=== PATIENT | female | born 1965 | race Caucasian/White ===

== ENCOUNTER 2017-04-21 14:55 | Observation (INO) | payer MEDICARE ==
[~2017-04-21] VITALS: Ht 154.9 cm; Wt 73.6 kg
--- NOTE | ~2017-04-21 | HEMODYNAMI ---
PATIENT:JULIO CESAR CASANOVA MEDICAL RECORD: [id number] : 61 [facility] [id number] ADMISSION DATE: 04/21/17 Generatedon:04/22/201713:02 Patient name: JULIO CESAR CASANOVA Patient #: [id number] SSN: : Date of study: 04/22/2017 Page: Of Hemodynamic Procedure Report Patient Data Patient Demographics Procedure consent was obtained First Name: JULIO CESAR Gender: Female Last Name: EDILBERTO : 1965 Middle Initial: AMADOR Age: 52 year(s) Patient #: [id number] Race: Additional ID: [id number] Contact details Address: [address] [place] [address] State: [place] City: [facility] Zip code: [address] Admission Admission Data Admission Date: 04/21/2017 Admission Time: 17:55 Room #: D.2122 Lab Results Lab Result Date: 04/22/2017 Lab Result Time: 0:00 Biochemistry Name Units Result Min Max BUN mg/dl 15 --(--*-)-- 7 18 Creatinine mg/dl 1.2 --(---*)-- 0.6 1.3 CBC Name Units Result Min Max Hemoglobin g/dl 13.3 -*(----)-- 13.5 17.5 Procedure Procedure Types Cath Procedure Diagnostic Procedure [facility] w/Coronaries PCI Procedure Coronary Stent Coronary Stent Initial Miscellaneous Procedures Moderate Sedation up to 30 minutes Procedure Description Procedure Date Procedure Date: 04/22/2017 Procedure Start Time: 12:42 Procedure End Time: 12:59 Procedure Staff Name Function Ashwin Bean MD Performing Physician Arianna Palomino RT Monitor Erika Perdue RT Scrub Mechelle Nielsen RN Nurse Procedure Data Cath Procedure Fluoroscopy Diagnostic fluoroscopy Total fluoroscopy Time: 3.3 time: 3.3 min min Diagnostic fluoroscopy Total fluoroscopy dose: 408 dose: 408 mGy mGy Contrast Material Contrast Material Type Amount (ml) Isovue 300 92 Entry Location Entry Primary Successful Side Size Upsize Upsize Entry Closure Succes sful Closure Location (Fr) 1 (Fr) 2 (Fr) Remarks Device Remarks Femoral Right 5 Fr 6 Fr Exoseal artery Short Estimated blood loss: 5 ml Diagnostic catheters Device Type Used For End Catheter Placement Cordis 5Fr JL 4.0 Left Coronary Catheter (MP) Angiography Cordis 5Fr 3DRC Catheter Right Coronary (MP) Angiography Cordis 5Fr Pigtail LV Angiography Catheter (MP) Procedure Complications No complications Procedure Medications Medication Administration Route Dosage Oxygen NC 2 l/min Lidocaine 2% added to field 20 Heparin Flush Bag added to field 2 bags (1000units/500ml NS) 0.9% NaCl I.V. 100 ml/hr Versed I.V. 1 mg Fentanyl I.V. 50 mcg Heparin Bolus I.V. 4000 units Versed I.V. 1 mg Fentanyl I.V. 50 mcg Plavix P.O. 75 mg Hemodynamics Rest HGB: 13.3 (g/dl) Heart Rate: 114 (bpm) Pressure Samples Time Site Value (mmHg) Purpose Heart Use Rate(bpm) 12:48 LV 150/3,40 Snapshot 119 Gradients Valve Time Site Site Mean SEP/DFP Peak To Heart Use 1 2 (mmHg) (sec/min) Peak Rate (mmHg) (bpm) Aortic 12:49 LV AO 117 Snapshots Pre Cath Intra NCS Post Cath Vital Signs Time Heart Resp SPO2 etCO2 NIBP (mmHg) Rhythm Pain Status Sedation Rate (ipm) (%) (mmHg) Level (bpm) 12:33:32 101 13 98 0 135/86(104) NSR 2 (11) , 10(A) Uncomfortable 12:38:14 111 24 99 31.9 133/82(108) NSR 2 (11) , 10(A) Uncomfortable 12:42:59 107 15 99 36.4 137/78(100) NSR 2 (11) , 10(A) Uncomfortable 12:47:43 114 16 99 20 140/77(97) NSR 0 (11) , No 9(A) pain 12:52:28 108 15 98 38.6 134/75(94) NSR 0 (11) , No 9(A) pain 12:57:11 108 24 98 26.7 134/74(105) NSR 0 (11) , No 10(A) pain 13:00:25 107 18 98 21.5 140/73(91) NSR 0 (11) , No 10(A) pain Medications Time Medication Route Dose Verified Delivered Reason Notes Effectiveness by by 12:34:17 Oxygen NC 2 Ashwin Buffie used for l/min St. Fco Nielsen RN procedure 12:34:26 Lidocaine 2% added 20ml Ashwin Ashwin for local to vial [facility] anesthetic field MD KHAN 12:34:32 Heparin Flush added 2 Ashwin Ashwin used for Bag to bags [facility] procedure (1000units/500ml field MD KHAN NS) 12:34:40 0.9% NaCl I.V. 100 Ashwin Banguraie Per physician ml/hr [facility]. Fco Nielsen RN, MD 12:42:15 Versed I.V. 1 mg Ashwin Banguraie for sedation St. Fco Nielsen RN, MD 12:42:21 Fentanyl I.V. 50 Ashwin Buffie for sedation mcg [facility]. Fco Nielsen RN, MD 12:48:45 Heparin Bolus I.V. 4000 Ashwincici Banguraie for verifi ed units St. Fco Nielsen RN anticoagulation with dr MD gaines 12:51:16 Versed I.V. 1 mg Ashwin Banguraie for sedation St. Fco Nielsen RN, MD 12:51:20 Fentanyl I.V. 50 Ashwin Svetaie for sedation mcg St. Fco Nielsen RN, MD 12:59:26 Plavix P.O. 75 mg Ashwin Buffie for St. Fco Nielsen RN antiplatelet therapy Procedure Log Time Note 12:20:19 Diagnostic Cath Status : Elective 12:20:42 Arianna Palomino RT(R) sent for patient. Start room use. 12:20:43 Time tracking: Regular hours 12:20:49 Plan of Care:Hemodynamics will remain stable., Cardiac rhythm will remain stable., Comfort level will be maintained., Respiratory function will remain adequate., Patient/ family verbilizes understanding of procedure., Procedure tolerated without complication., Recovers from procedure without complications.. 12:28:09 Patient received from Med II to CCL 1 Alert and oriented. Tansferred to table in Supine position. 12:28:10 Warm blankets applied, and marian hugger turned on for patient comfort. 12:28:11 Correct patient and procedure confirmed by team. 12:28:13 Signed procedure consent form obtained from patient. 12:28:13 ECG and BP/O2 sat monitors applied to patient. 12:32:36 Vital chart was started 12:34:17 Oxygen 2 l/min NC was administered by Mechelle Nielsen RN; used for procedure; 12:34:26 Lidocaine 2% 20ml vial added to field was administered by Ashwin Bean MD; for local anesthetic; 12:34:32 Heparin Flush Bag (1000units/500ml NS) 2 bags added to field was administered by Ashwin Bean MD; used for procedure; 12:34:40 0.9% NaCl 100 ml/hr I.V. was administered by Mechelle Nielsen RN; Per physician; 12:35:20 Baseline sample Acquired. 12:36:01 Rhythm: sinus rhythm 12:36:04 Full Disclosure recording started 12:36:11 H&P Date Dictated: 04/22/2017 New H&P dictated by physician.. 12:36:32 Pre-procedure instructions explained to patient. 12:36:32 Pre-op teaching completed and patient verbalized understanding. 12:36:35 Family in waiting room. 12:36:41 Patient NPO since Midnight. 12:36:53 Is the patient allergic to Iodine/contrast media? No. 12:36:55 Was the patient premedicated? No 12:37:06 Is patient on blood thinner?Yes 12:37:10 ACC The patient was administered the following blood thiners within the last 24 hours: ACCPlavix 12:37:14 Patient diabetic? Yes. 12:37:16 If diabetic: On Metformin? Yes 12:37:20 If on Metformin: Last Dose? 04/21/2017 12:37:24 Previous problem with sedation/anesthesia? No ? 12:37:28 Snore? Yes 12:37:29 Sleep apnea? No 12:37:35 Deviated septum? No 12:37:36 Opens mouth fully? Yes 12:37:37 Sticks out tongue? Yes 12:37:42 Airway obstruction? No ? 12:37:46 Dentures? No ? 12:38:03 Pre procedure: right dorsailis pedis pulse 2+ Normal; easily identifiable; not easily obliterated 12:38:07 Pre procedure: left dorsailis pedis pulse 2+ Normal; easily identifiable; not easily obliterated 12:38:10 Patient pain scale 2/10 ?. 12:38:28 IV patent on arrival in left hand with 0.9% NaCl at [facility]. 12:39:23 Lab Result : BUN 15 mg/dl 12:39:23 Lab Result : Creatinine 1.2 mg/dl 12:39:23 Lab Result : Hemoglobin 13.3 g/dl 12:39:27 Lab results completed and on chart. 12:39:32 Right groin area was prepped with chlora-prep and draped in sterile fashion 12:39:33 Alarms reviewed by R. N. 12:39:34 Sharps counted by scrub and verified by R.N. 12:39:37 Physician arrived 12:39:37 --------ALL STOP TIME OUT------ 12:39:38 Final Timeout: patient, procedure, and site verified with staff and physician. All members of the team are in agreement. 12:39:40 Right groin site verified by team. 12:39:43 Physical assessment completed. ASA score P 2 - A patient with mild systemic disease as per Ashwin Bean MD. 12:39:47 Sedation plan: IV Moderate Sedation Medication:Versed, Fentanyl 12:40:32 Use device set Femoral Dx 12:40:33 Acist Syringe opened to sterile field. 12:40:34 Bag Decanter opened to sterile field. 12:40:34 Medline Cath Pack opened to sterile field. 12:40:35 Terumo 5Fr Presidio Sheath opened to sterile field. 12:40:35 St Mike 260cm J .035 wire opened to sterile field. 12:40:37 Acist Hand Control opened to sterile field. 12:40:38 Acist Manifold opened to sterile field. 12:40:38 Diagnostic Infinity 5Fr Multipack catheter opened to sterile field. 12:40:41 Tegaderm 4 x 4 opened to sterile field. 12:40:55 Procedure started. 12:40:57 PERCUTANEOUS ENTRY 19GA needle opened to sterile field. 12:42:12 Local anesthetic to right femoral artery with Lidocaine 2% by Ashwin Bean MD.INITIAL ACCESS ONLY 12:42:15 Versed 1 mg I.V. was administered by Mechelle Nielsen RN; for sedation; 12:42:21 Fentanyl 50 mcg I.V. was administered by Buffie Nielsen RN; for sedation; 12:42:23 A 5 Fr sheath was inserted into the Right Femoral artery 12:43:04 A Cordis 5Fr JL 4.0 Catheter (MP) was advanced over the wire and used for Left Coronary Angiography. 12:43:05 Zero performed for pressure channel P1 12:45:34 LCA angiography performed. 12:45:38 Injector settings: Ml/sec: 3, Volume: 6, 12:45:46 Catheter removed. 12:45:51 A Cordis 5Fr 3DRC Catheter (MP) was advanced over the wire and used for Right Coronary Angiography. 12:46:52 RCA angiography performed. 12:46:57 Injector settings: Ml/sec: 3, Volume: 6, 12:46:59 Catheter removed. 12:47:04 A Cordis 5Fr Pigtail Catheter (MP) was advanced over the wire and used for LV Angiography. 12:48:12 Terumo 6Fr [place] Sheath opened to sterile field. 12:48:13 Stance BasixCompak Inflation Kit opened to sterile field. 12:48:13 [employer] Launcher 6Fr JL 3.5 guide catheter opened to sterile field. 12:48:32 [employer] PT Graphix J 300cm 0.014 guide wire opened to sterile field. 12:48:45 Heparin Bolus 4000 units I.V. was administered by Mechelle Nielsen RN; for anticoagulation; verified with dr gaines 12:48:46 LV hemodynamics recorded. 12:48:47 LV gram done using MCFADDEN 12:48:50 Injector settings: Ml/sec: 5, Volume: 15, 12:49:20 EF : 25 % 12:51:16 Versed 1 mg I.V. was administered by Mechelle Nielsen RN; for sedation; 12:51:20 Fentanyl 50 mcg I.V. was administered by Mechelle Nielsen RN; for sedation; 12:54:59 Catheter removed. 12:55:08 Sheath upsized to a 6 Fr Short. 12:55:23 6 Fr jl 3.5 guide catheter was inserted over the wire 12:55:30 pt graphix wire advanced. 12:55:36 Inflation Number: 1 A Boyle OTW 3.5 x 15 stent was prepped and advanced across the Mid CX. The stent was deployed at 12 ANNA for 0:30 (min:sec). 12:55:41 Stent catheter was removed intact over wire. 12:55:42 Wire removed. 12:55:42 Guide catheter removed. 12:56:27 Cordis 6Fr Exoseal opened to sterile field. 12:56:41 Sheath removed intact; hemostasis achieved with Exoseal to the Right Femoral artery. 12:56:43 Procedure ended.(Physican Out) 12:57:51 Fluoroscopy time 03.30 minutes. 12:58:01 Fluoroscopy dose: 408 mGy 12:58:01 Flurop Dose total: 408 12:58:05 Contrast amount:Isovue 300 92ml. 12:58:07 Sharps counted by scrub and verified by R.N. 12:58:08 Insertion/operative site no bleeding no hematoma. 12:58:11 Post-op/insertion site Right Femoral artery dressed using a 4 x 4 and Tegaderm. 12:58:13 Post right femoral artery:stable 12:58:15 Post Procedure Pulses reassessed and unchanged 12:58:19 Post procedure rhythm: unchanged. 12:58:21 Estimated blood loss: 5 ml 12:58:23 Post procedure instruction explained to patient.Patient verbalizes understanding. 12:58:23 Patient needs reinforcement of post procedure teaching. 12:58:45 Procedure type changed to Cath procedure, Diagnostic procedure, LHC, LHC w/Coronaries, PCI procedure, Coronary Stent, Coronary Stent Initial, Miscellaneous Procedures, Moderate Sedation up to 30 minutes 12:58:47 Procedure and supply charges have been captured, reviewed, submitted and are correct. 12:58:52 Procedure Complication : No complications 12:58:55 Vital chart was stopped 12:58:55 See physician's report for complete and final results. 12:58:57 Report given to [facility]. 12:58:59 Patient transfered to [facility] with Stretcher. 12:59:01 Procedure ended. 12:59:01 Full Disclosure recording stopped 12:59:09 ACC-PCI Only Patient was given prescriptions, or instructed by Ashwin Bean MD to start/continue the following medications upon discharge: Plavix 12:59:11 End room use (Document Last) 12:59:26 Plavix 75 mg P.O. was administered by Mechelle Nielsen RN; for antiplatelet therapy; Intervention Summary Intervention Notes Time ActionType Lesion and Equipment Action# Pressure Duration Attributes Used 12:55:36 Place stent Mid CX Boyle OTW 1 12 00:30 3.5 x 15 stent Device Usage Item Name Manufacture Quantity Catalog Number Hospital Part Current Min imal Lot# / Charge Number Stock Stock Serial# Code Acist Acist 1 42474 932694 151999 115153 20 Syringe Medical Systems Inc Bag Decanter Microtek 1 2002S 621052 41916 255502 5 Medical Inc. Medline Cath Cardinal 1 [id number] 991571 47234 828665 5 Pack Health Terumo 5Fr Terumo 1 [id number] 281832 943095 585268 [address] [facility] [address] Mike 1 787827 876970 517560 374133 30 260cm J .035 wire Acist Hand Acist 1 30194 747855 006809 816084 5 Control Medical Systems Inc Acist Acist 1 88814 108343 828510 779239 5 Manifold Medical Systems Inc Diagnostic Cardinal 1 [id number] 086399 82681 009844 30 Infinity 5Fr Health Multipack catheter Tegaderm 4 x 3M 1 1626W 232803 540014 826056 5 4 Cordis 5Fr Cardinal 1 745125 5 JL 4.0 Health Catheter (MP) Cordis 5Fr Cardinal 1 463423 5 3DRC Health Catheter (MP) Cordis 5Fr Cardinal 1 715296 5 Pigtail Health Catheter (MP) Terumo 6Fr Terumo 1 [id number] 710506 732720 079730 40 [place] Sheath Merit Merit 1 GQ9699 055780 212113 768979 15 BasixCompak Medical Inflation Kit Medtronic Medtronic 1 [id number] 121180 82135 013413 1 Launcher 6Fr JL 3.5 guide catheter [place] Sci [place] 1 [id number] 269632 797201 317474 5 PT Graphix J Scientific 300cm 0.014 guide wire Manjeet OTW 3.5 Medtronic 1 [id number] 188758 9475882 002400 5 [id number] x 15 stent PERCUTANEOUS ClasesD Medical 1 [id number] 205409 625010 5 [id number] ENTRY 19GA needle Cordis 6Fr Cardinal 1 EX600 836936 130049 337514 10 [facility] Sgrouples Signature Audit [place] Stage Time Signature Unsigned Intra-Procedure 04/22/2017 Arianna Palomino 1:01:57 PM RT(R) Signatures Monitor : Arianna Palomino RT Signature : Date : Time : [facility] [address] [place] [address]
[~2017-04-21 14:55] MED LIST: ASPIRIN81 MG PO; B-12 DOTS500 MCG PO; BRILINTA90 MG PO; LISINOPRIL2.5 MG PO; LOPRESSOR25 MG PO; PRAVACHOL20 MG PO; RANEXA1000 MG PO
[2017-04-21 15:46] LABS: BASOPHILS 0.2 % (0-2); EOSINOPHILS 1.3 % (0-7); HEMATOCRIT 38.9 % (36.0-48.0); HEMOGLOBIN 13.3 g/dL (12-16); IMMATURE GRANULOCYTES 0.3 % (0-5); LYMPHOCYTES 50.3 % (15-50); MCH 31.4 pg (26.0-34.0); MCHC 34.2 g/dL (31.0-37.0); MCV 91.7 fL (80.0-100.0); MEAN PLATELET VOLUME 10.8 fL (7.4-10.4); MONOCYTES 8.4 % (2-11); NEUTROPHILS 39.5 % (40-80); PLATELET COUNT 239 10x3/uL (130-400); RBC 4.24 10x6/uL (4.00-5.40); RDW 12.7 % (11.5-14.5); WBC 9.4 10x3/uL (4.8-10.8)
[2017-04-21 15:57] LABS: ALBUMIN 4.1 g/dL (3.4-5.0); ALKALINE PHOSPHATASE 82 U/L (46-116); ALT (SGPT) 47 U/L (10-68); BILIRUBIN - TOTAL 0.27 mg/dL (0.2-1.3); CALC OSMOLALITY 290 mosm/kg (275-300); CHLORIDE - SERUM 104 mmol/L (98-107); CREATININE - SERUM 1.2 mg/dL (0.6-1.3); GLUCOSE 258 mg/dL (74-106); PROTEIN - SERUM 7.8 g/dL (6.4-8.2); SODIUM 141 mmol/L (136-145); UREA NITROGEN 15 mg/dL (7-18); eGFR NON AFRICAN AMERICAN 50 mL/min (90-120)
[2017-04-21 16:12] LABS: CREATINE KINASE 246 UL (21-215)
[2017-04-21 16:17] LABS: TROPONIN-I 1.246 ng/mL (0.000-0.060)
[2017-04-21] MEDS ORDERED: TRIGLIDE160 MG PO (19:53)
[2017-04-21] MEDS ORDERED: VICTOZA0.6 MG/0.1 SQ (19:53)
[2017-04-21] MEDS ORDERED: TRESIBA FL100 UNIT/1 (19:54)
[2017-04-21] MEDS ORDERED: GLUCOPHAGE1000 MG PO (19:54)
--- NOTE | 2017-04-21 20:13 | NUR ---
RECEIVED REPORT FROM DEVAN FROM ER, PT IS A&O, IV-L.HAND-SL, PLACED ON TELEMTRY, PT KNOWS SHE WILL BE NPO AFTER MID-NIGHT, WILL GET CONSENT SIGNED FOR CATH, BED IS LOW, SRX2, CALL LIGHT IN REACH, WILL CONTINUE PLAN OF CARE
[2017-04-21 22:38] LABS: CKMB 3.5 U/L (0.0-3.6); CREATINE KINASE 185 UL (21-215)
[2017-04-21 22:41] LABS: TROPONIN-I 1.146 ng/mL (0.000-0.060)
[2017-04-21 23:09] VITALS: BP 114/71; Ht 154.9 cm; Wt 73.6 kg
--- NOTE | 2017-04-21 23:22 | NUR ---
ADMISSION ASSESSMENT COMPLETED. SR WIT HDEPRESSED ST SEGMENT HR 79. IV TO L HAND SL. ALERT AND ORIENTED TO PERSON, PLACE AND TIME. STATES CP 2/10 WITH INSPIRATION AND COUGH. WILL CONTINUE TO MONITOR. SR UP X2, CALL LIGHT WITHIN REACH.
--- NOTE | 2017-04-22 03:05 | NUR ---
PT SLEEPING, NPO SINCE MIDNIGHT, BED IS LOW, SRX2, CALL LIGHT IN REACH, WILL CONTINUE PLAN OF CARE
[2017-04-22 05:41] LABS: CKMB 2.4 U/L (0.0-3.6); CREATINE KINASE 147 UL (21-215)
[2017-04-22 05:51] LABS: TROPONIN-I 0.967 ng/mL (0.000-0.060)
[2017-04-22 06:37] VITALS: BP 115/60
--- NOTE | 2017-04-22 07:05 | NUR ---
RECEIVED REPORT. ASSUMED CARE OF PATIENT. PATIENT LYING IN BED ON RIGHT LATERAL SIDE. FEMALE VISITOR AT BEDSIDE. PATIENT STATES SHE IS USED TO DULL ACHY PAIN IN CHEST BUT THIS SEEMS TO KIND OF RADIATE TO SHOULDER. TELEMETRY PATENT WITH NOTED ST DEPRESSION. CALL LIGHT WITHIN REACH. PATIENT BEING KEPT NPO FOR POSSIBLE HEART CATH. NO DISTRESS.
[2017-04-22 08:00] VITALS: BP 104/51
[2017-04-22 08:56] LABS: CALC OSMOLALITY 289 mosm/kg (275-300); CALCIUM 9.4 mg/dL (8.5-10.1); CARBON DIOXIDE 22.4 mmol/L (21.0-32.0); CHLORIDE - SERUM 109 mmol/L (98-107); GLUCOSE 149 mg/dL (74-106); POTASSIUM - SERUM 3.9 mmol/L (3.5-5.1); SODIUM 144 mmol/L (136-145); UREA NITROGEN 13 mg/dL (7-18); eGFR NON AFRICAN AMERICAN 61 mL/min (90-120)
[2017-04-22 09:00] LABS: BASOPHILS 0.3 % (0-2); EOSINOPHILS 2.1 % (0-7); HEMATOCRIT 35.7 % (36.0-48.0); HEMOGLOBIN 12.1 g/dL (12-16); IMMATURE GRANULOCYTES 0.3 % (0-5); LYMPHOCYTES 66.7 % (15-50); MCH 31.5 pg (26.0-34.0); MCHC 33.9 g/dL (31.0-37.0); MEAN PLATELET VOLUME 11.3 fL (7.4-10.4); MONOCYTES 6.5 % (2-11); NEUTROPHILS 24.1 % (40-80); PLATELET COUNT 238 10x3/uL (130-400); RBC 3.84 10x6/uL (4.00-5.40); RDW 12.9 % (11.5-14.5); WBC 7.7 10x3/uL (4.8-10.8)
--- NOTE | 2017-04-22 10:01 | HP ---
PATIENT: JULIO CESAR CASANOVA MEDICAL RECORD: [id number] ACCOUNT: [id number] LOCATION:[address] : 61 ADMISSION DATE: 04/21/17 HISTORY AND PHYSICAL EXAMINATION HISTORY OF PRESENT ILLNESS: A 52-year-old female with a known history of coronary artery disease, status post intervention by Dr. Whelan, has a history of chronic stable angina, on Ranexa for the same, admitted after acute social stressor with attempted suicide, found to have cardiac enzymes. She was admitted for further evaluation. PAST MEDICAL HISTORY: 1. History of hypertension. 2. Hyperlipidemia. 3. Diabetes mellitus. 4. Coronary artery disease as described above. ALLERGIES: None known. MEDICATIONS: Include fenofibrate 160 day, pravastatin 20 daily, Ranexa 1 gram b.i.d., aspirin 81 day, insulin per scale, Victoza 1.2 mg subcutaneous daily, metformin 1 gram b.i.d. ALLERGIES: No known drug allergies. SOCIAL HISTORY: , has been under more stress as of late, nonsmoker. No illicit drug use. REVIEW OF SYSTEMS: The patient reports easy bruising but reports no swollen glands. The patient reports no fever, no night sweats, no significant weight gain, no significant weight loss. No significant exercise tolerance. The patient reports no dry eyes, no irritation, no vision change. Patient reports no difficulty hearing and no ear pain. Patient reports no frequent nose bleeds or nose and sinus problems. Patient reports on arm pain on exertion. No shortness of breath while lying down. No history of heart murmur. Patient reports no cough, no wheezing or coughing up blood. Patient reports no abdominal pain, no vomiting. Normal appetite. No diarrhea and not vomiting blood. No nausea and no constipation. Patient reports no incontinence. No difficulty urinating. No hematuria. No increased frequency. Patient reports no muscle aches. No weakness, no arthralgias, no back pain. No swelling of the extremities. Patient reports no abnormal mole, no jaundice, no rashes. Reports no loss of consciousness. No weakness and no numbness. No seizures, dizziness, or headaches. The patient reports no depression, no sleep disturbance, feeling safe in a relationship and no alcohol abuse. Patient reports on fatigue. Reports no runny nose or sinus pressure. No itching, no hives, and no frequent sneezing. PHYSICAL EXAMINATION: GENERAL: Pleasant female in no acute distress. VITAL SIGNS: Blood pressure 104/51, pulse 70 and regular. HEENT: Normocephalic, atraumatic. NECK: No bruits are noted. HEART: Regular. LUNGS: Oro good air excursion. ABDOMEN: Soft, nontender. HISTORY AND PHYSICAL [id number] JULIO CESAR CASANOVA EXTREMITIES: Pulses are 2+ with no edema. NEUROLOGIC: Grossly intact. DIAGNOSTIC DATA: ECG shows diffuse ST-T changes. IMPRESSION: Non ST-elevation myocardial infarction. Obviously including the differential would be Takotsubo cardiomyopathy with recent stressors, although this is difficult to tell if she is having new ECG changes, previous history of intervention to LAD. PLAN: Diagnostic intervention based on above. TRANSINT:[id number] Voice Confirmation ID: [id number] DOCUMENT ID: [id number] MANOLO CAMACHO MD at 1001 CC: [id number] DICTATION DATE: 04/22/17826 PESTICIDE CONTROL INSPECTOR: 04/22/17 0937 ADM IN [place] [id number] [place] [id number]
--- NOTE | 2017-04-22 11:30 | NUR ---
FSBS 104. NO INSULIN COVERAGE ADMINISTERED. PATIENT NPO FOR MACHINE CEMENTER.
[2017-04-22 12:00] VITALS: BP 120/63
--- NOTE | 2017-04-22 12:04 | NUR ---
PREOP MEDS GIVEN PER BUFFY FROM [employer].
[2017-04-22 12:15] VITALS: BP 120/63
--- NOTE | 2017-04-22 12:20 | NUR ---
PATIENT LEFT UNIT VIA BED FOR TUBE COATER. NO DISTRESS UPON LEAVING UNIT.
--- NOTE | 2017-04-22 13:34 | NUR ---
PATIENT RESTING WITH EYES CLOSED. EASILY AROUSED. IV FLUIDS INFUSING ORDERED. PERIPHERAL PULSES PATENT. NO HEMATOMA FORMATION AT RIGHT GROIN. RIGHT GROIN DRESSING CLEAN, DRY AND INTACT. CALL LIGHT WITHIN REACH. FAMILY AT BEDSIDE.
[2017-04-22 16:00] VITALS: BP 100/58
[2017-04-22 16:11] VITALS: BP 108/62
--- NOTE | 2017-04-22 16:31 | NUR ---
FSBS 78. NO INSULIN COVERAGE REQUIRED.
[2017-04-22] MEDS ORDERED: COREG 3.1253.125 MG PO (17:48)
[2017-04-22] MEDS ORDERED: PLAVIX75 MG PO (17:49)
[2017-04-22] MEDS ORDERED: COZAAR50 MG PO (17:50)
--- NOTE | 2017-04-22 18:51 | NUR ---
1830 20 GAUGE IV REMOVED FROM LEFT HAND. NO BLEEDING FROM SITE. CATHETER TIP INTACT. 2X2 GAUZE APPLIED AND SECURED WITH TAPE. 1840 DISCHARGE INSTRUCTIONS PROVIDED TO PATIENT. 3 PRESCRIPTIONS AND STENT CARD GIVEN TO PATIENT. PATIENT VERBALIZED UNDERSTANDING OF ALL INSTRUCTIONS PROVIDED. 1850 PATIENT LEFT UNIT VIA WHEELCHAIR WITH ALL PERSONAL BELONGINGS. PATIENT DISCHARGED TO HOME WITH HER FRIEND. PATIENT IN NO DISTRESS UPON LEAVING UNIT AND THANKED THIS RENT AND MISCELLANEOUS REMITTANCE CLERK FOR CARES RENDERED.
--- NOTE | 2017-04-23 11:39 | OP ---
PATIENT NAME: JULIO CESAR CASANOVA MEDICAL RECORD: [id number] :61 LOCATION:D.M2 D.2 ADMISSION DATE:04/21/17 SURGEON: MANOLO CAMACHO MD DATE OF OPERATION: 04/22/2017 PROCEDURE: Left heart catheterization, selective coronary angiography, right femoral approach. CATHETERS: A 5-American sheath, 5/4 left and right Brianna, 5/4 pig. The procedure was well tolerated. Proceeded to PTCA stenting of circumflex. FINDINGS: Left ventriculography, 30-degree MCFADDEN view shows marked anterior, mid anterior wall, anterior apical and anterior apex. Overall function reduced 25-30%. CORONARY ANATOMY: LEFT MAIN: Left main is free of disease. LAD: In the area of previous stenting is widely patent without evidence of restenosis. CIRCUMFLEX: Has an new non-described lesion of 90%, this may be a fissured plaque. RIGHT CORONARY ARTERY: The right coronary artery was somewhat of a codominant system and this shows no significant stenosis. IMPRESSION: Non-ST elevation myocardial infarction secondary to disease of the circumflex in which momentarily a 5-American sheath was changed for a 6-American sheath. The JL4 guiding catheter provided a good guide catheter support followed by 300 cm Whisper wire which was placed across the totally occluded circumflex. This portion of left anterior descending, stent deployed was a 3.5 x 15 mm Wellington drug-eluting stent up to 14 atmospheres. Final angiography shows excellent resolution, 90+ percent stenosis, no significant residual. DOMINIQUE flow was 3 throughout the procedure. Integrilin was used in the case. Sheath closed with ExoSeal device. TRANSINT:[id number] Voice Confirmation ID: [id number] DOCUMENT ID: [id number] MANOLO CAMACHO MD at 1139 CC: [id number] DICTATION DATE: 04/22/17 1302 MARINE SUPERINTENDENT: 04/22/17 1413 DIS IN 04/22/17 [place] [id number] [place] [address]
--- NOTE | 2017-04-23 11:39 | DS ---
PATIENT:JULIO CESAR CASANOVA :61 MEDICAL RECORD: [id number] DISCHARGE SUMMARY ADMISSION DATE: 04/21/17 DISCHARGE DATE: 04/22/17 DATE OF ADMISSION: 04/21/2017. DATE OF DISCHARGE: 04/22/2017. PROBLEM LIST: 1. Non-ST elevation myocardial infarction. 2. Diabetes mellitus. 3. Hypertension. 4. Hyperlipidemia. BRIEF HISTORY AND HOSPITAL COURSE: He was admitted with a non-ST elevation myocardial infarction, was found to have a tight circumflex disease on intervention of vessel, additionally found to have cardiomyopathy, and was started on ARB and beta blockade, discharged home in good condition. DIET: AHA ADA diet. ACTIVITY: As tolerated. TRANSINT:[id number] Voice Confirmation ID: [id number] DOCUMENT ID: [id number] MANOLO CAMACHO MD at 1139 CC: [id number] DICTATION DATE: 04/22/17 1303 QUALITY CONTROL MICROBIOLOGIST: 04/22/17 1443 DIS IN 04/22/17 [place] [address] [place] [address]
== END 2017-04-22 18:50 | disposition home or self-care (01) ==
LOC: D.ER 14:55 → OBSVTIME 17:55 → D.M2 17:55
PROVIDERS: Emergency Medicine; ADMIT Internal Medicine Interventional Cardiology
DX: I21.4 Non-ST elevation (NSTEMI) myocardial infarction (principal); I25.10 Atherosclerotic heart disease of native coronary artery without angina pectoris; E11.9 Type 2 diabetes mellitus without complications; I10 Essential (primary) hypertension; E78.5 Hyperlipidemia, unspecified; I42.9 Cardiomyopathy, unspecified

== ENCOUNTER 2019-07-25 08:10 | Day surgery (SDC) | payer OTHER ==
[2019-07-23 15:41] LABS: HEMATOCRIT 41.8 % (36.0-48.0); HEMOGLOBIN 14.6 g/dL (12-16); MCH 31.1 pg (26.0-34.0); MCHC 34.9 g/dL (31.0-37.0); MCV 89.1 fL (80.0-100.0); MEAN PLATELET VOLUME 9.8 fL (7.4-10.4); RBC 4.69 10x6/uL (4.00-5.40); RDW 12.3 % (11.5-14.5); WBC 10.1 10x3/uL (4.8-10.8)
[2019-07-23 15:46] LABS: ANION GAP 13.6 mmol/L (8-16); CARBON DIOXIDE 28.4 mmol/L (21.0-32.0); CREATININE - SERUM 0.9 mg/dL (0.6-1.3)
[~2019-07-25] VITALS: Ht 154.9 cm; Wt 77.1 kg
[2019-07-25 08:28] VITALS: BP 146/75; Ht 154.9 cm; Wt 77.1 kg
--- NOTE | 2019-07-25 13:25 | NUR ---
KNEE IMMOBILIZER APPLIED TO RT KNEE IN RR
--- NOTE | 2019-07-25 14:16 | NUR ---
1402 PT C/O BURNING SENSATION ABOVE RIGHT KNEE. DESCRIBES IT LIKE A "HOT POKER STICKING ME"
--- NOTE | 2019-07-25 15:19 | NUR ---
1503 PT STATES THE BURNING IS GET LESS IN INTENSITY. PAIN LEVEL IS 5 OUT OF 10. IV DC'D. CATHETER TIP INTACT. NO BLEEDING AT SITE. BANDAID APPLIED.
--- NOTE | 2019-07-29 09:56 | OP ---
PATIENT NAME: JULIO CESAR CASANOVA MEDICAL RECORD: [id number] :61 LOCATION:D.OPS ADMISSION DATE: SURGEON: VENTURA LEE MD DATE OF OPERATION: 07/25/2019 PREOPERATIVE DIAGNOSES: Medial meniscus tear, tibial plateau fracture and anterior cruciate ligament tear. POSTOPERATIVE DIAGNOSES: 1. Anterior cruciate ligament tear of the right knee. 2. Nondisplaced tibial plateau fracture of the right knee. PROCEDURE: Right anterior cruciate ligament reconstruction with allograft. SURGEON: Ventura Lee MD DIRECTOR OF VITAL STATISTICS: ANDIE Dudley INTRAOPERATIVE COMPLICATIONS: None. SUMMARY OF PATHOLOGIC FINDINGS: While the patient was thought to perhaps have a medial meniscus tear that was not brought out at the time of operative intervention. The patient also had a known MRI documented nondisplaced proximal tibial plateau fracture. There were no chondral fissuring or cracks to suggest displaced tibial plateau fracture. The inside of the knee with the exception of the anterior cruciate was essentially pristine. I do think; however, the patient will need protected weightbearing to allow for the tibial plateau fracture to heal; however, it did not require internal fixation and the menisci did not require repair. The ACL was completely pulled off its femoral origin and required anterior cruciate ligament reconstruction, allograft was used. OPERATIVE SUMMARY IN DETAIL: After obtaining the appropriate preoperative orthopedic surgery consent as well as anesthetic consultation, evaluation and clearance, the patient was brought to the operating room and placed on the operating table in a supine position. After general laryngeal mask airway was administered, tourniquet was placed about the proximal aspect of the right lower extremity. Right lower extremity was prepped and draped in sterile fashion. At this point, the appropriate timeout was taken and agreed upon by all. Given the patient's unique identifiers, the leg was elevated and exsanguinated, tourniquet was inflated to 350 mmHg. Routine inferolateral portal and superior medial portal was established along with the inferomedial portal. Diagnostic arthroscopy of the entire knee showed basically a pristine knee with remnants of inflammatory tissue as well as some blood. There were no loose bodies. The medial and lateral menisci were intact. No chondral fissuring could be seen in keeping with a nondisplaced MRI documented tibial plateau fracture. Care was taken to evaluate all portions of the condylar surfaces and articular surface to make sure that the patient was not at risk for extravasation compartment syndrome. When it was felt that the patient was reasonably safe from compartment syndrome, diagnostic arthroscopy of the ACL did show the patient to have an ACL tear that had torn from its femoral origin and had completely adhered to the PCL giving her a pseudo false positive Alonzo's test. At this point, under direct arthroscopy the ACL was taken down to its stump. Formal notchplasty was performed. The tibial guide was then utilized to create an 11-mm tibial tunnel and then the appropriate guide was utilized with the low profile 11-mm reamer to create a depth of approximately 25-mm. Allograft was OPERATIVE REPORT [id number] EDILBERTOJULIO CESAR AMADOR then prepared on the back field using the TightRope connection system. It was thusly passed using a TightRope connection system seated into the femoral tunnel. The button was then seated along the lateral femoral compartment. The knee was ranged several times before the distal fixation was achieved with a transcortical tibial post. Having completed this, the knee was taken through range of motion. Alonzo's test was negative. Pivot shift was negative. At this point, after already having a block, no intra-articular medication was utilized. The incisions were closed in the usual fashion by ANDIE Dudely. Sterile dressings were applied. Tourniquet was deflated and an articulated knee brace set at a locked out of 0 was placed. The patient was then awakened and taken to recovery room in stable condition. All final needle and sponge counts were correct. TRANSINT:[id number] Voice Confirmation ID: [id number] DOCUMENT ID: [id number] JESUS KHAN, VENTURA NUNEZ at 0956 CC: [id number] DICTATION DATE: 07/26/19 1018 PROGRAM AIDE GROUP WORK: 07/26/19 1301 [facility] [place] 07/25/19 [place] [id number]
== END 2019-07-25 15:18 | disposition home or self-care (01) ==
LOC: D.OPS 08:10 → D.PAN 10:15 → D.OPS 15:18 → D.PAN 18:30
PROVIDERS: Anesthesiology; ATTEND Orthopaedic Surgery
DX: S83.241A Other tear of medial meniscus, current injury, right knee, initial encounter (principal); S82.121A Displaced fracture of lateral condyle of right tibia, initial encounter for closed fracture; X58.XXXA Exposure to other specified factors, initial encounter; M25.561 Pain in right knee; I25.10 Atherosclerotic heart disease of native coronary artery without angina pectoris; I42.9 Cardiomyopathy, unspecified; I10 Essential (primary) hypertension; E78.5 Hyperlipidemia, unspecified; Z01.810 Encounter for preprocedural cardiovascular examination

== ENCOUNTER → 2020-08-04 11:49 | Outpatient (CLI) | payer BC ==
[2019-07-25 08:28] VITALS: BMI 32.2
[~2020-08-04 11:49] MED LIST changes: +COREG 3.1253.125 MG PO; +COZAAR50 MG PO; +GLUCOPHAGE1000 MG PO; +HYDROCODON-ACE1 EA10 PO; +PLAVIX75 MG PO; +TRESIBA FL100 UNIT/1; +TRESIBA FL100 UNIT/1 SC; +TRIGLIDE160 MG PO; +VICTOZA0.6 MG/0.1 SQ
--- NOTE | 2020-08-05 09:45 | EC ---
PATIENT:JULIO CESAR CASANOVA DATE OF SERVICE: 08/04/20 SEX: F MEDICAL RECORD: [id number] DATE OF : 61 LOCATION:[facility] AGE OF PATIENT: 55 ADMISSION DATE: 08/04/20 REFERRING PHYSICIAN: INTERPRETING PHYSICIAN: MANOLO CAMACHO MD ECHOCARDIOGRAM REPORT ECHO CHARGES 4 ECHO COMPLETE Date: 08/04/20 CLINICAL DIAGNOSIS: CAD/CARDIOMYOPATHY/ RECENT CHEST PAIN, ASSESS EF AND VALVES ECHOCARDIOGRAPHIC MEASUREMENTS (adult normal given) AC root (d.<3.7cm) 2.9 cm LV Septum d (<1.2 cm> 1.2 cm Valve Excursion 1.8 cm LV Septum (systole) 1.6 cm Left Atria (s.<4.0cm> 3.7 cm LVPW d(<1.2cm) 1.3 cm RV (d.<2.3cm) 3.9 cm LVPW (sytole) 1.8 cm LV diastole(<5.6CM) 4.5 cm MV E-F(>70mm/sec) cm LV systole 2.5 cm LVOT Diameter 1.9 cm MV exc.(>10mm) 1.5 cm Est.ejection fraction (50-75%) % DOPPLER: LVIT cm/sec A 102.0cm/sec E 84.0 cm/sec LA cm/sec RVSP 18 mmHg LVOT 110 cm/sec AOP1/2T m/s Asc. Ao 149 cm/sec RVOT 80 cm/sec RA cm/sec PA 108 cm/sec AV Gradient Peak 8.88 mmHg AV Mean 4.81 mmHg AV Area 2.3 cm MV Gradient Peak 2.41 mmHg MV Mean 1.12 mmHg MV Area cm COMMENTS: Background Check Coordinator: 2 LIANA TOMLINSON Title Search Manager: 3 Dr. Bean TAPE# PACS Pericardial Effusion N DATE OF SERVICE: 08/04/2020 Adequate 2D, color flow imaging, spectral Doppler, and M-Mode. FINDINGS: Borderline LVH. LV internal dimension is normal. Wall motion is normal. EF is greater than or equal to 55%. Aortic valve is tricuspid. No evidence of stenosis by Doppler interrogation. Left atrium was normal. Mitral valve shows no prolapse. Trace MR. Right-sided chambers are grossly normal. Trace TR. ECHOCARDIOGRAM REPORT [id number] JULIO CESAR CASANOVA TRANSINT:[id number] Voice Confirmation ID: [id number] DOCUMENT ID: [id number] MANOLO CAMACHO MD at 0945 CC: [id number] DICTATION DATE: 08/04/20 [address] SUPERVISOR: 08/04/202241 DEP CLI 08/04/20 [place] [id number] [place] [id number]
== END | disposition home or self-care (01) ==
LOC: D.HCCECHO 11:49
PROVIDERS: ATTEND Internal Medicine Interventional Cardiology
DX: I25.10 Atherosclerotic heart disease of native coronary artery without angina pectoris (principal)

== ENCOUNTER → 2020-08-18 08:14 | Outpatient (CLI) | payer BC ==
[2019-07-25 08:28] VITALS: BMI 32.2
== END | disposition home or self-care (01) ==
LOC: D.HCCARDIO 08:14
PROVIDERS: ATTEND Internal Medicine Cardiovascular Disease
DX: I20.9 Angina pectoris, unspecified (principal)

== ENCOUNTER 2020-08-31 07:15 | Day surgery (SDC) | payer BC ==
[~2020-08-31] VITALS: Ht 154.9 cm; Wt 77.6 kg
--- NOTE | ~2020-08-31 | HEMODYNAMI ---
PATIENT:JULIO CESAR CASANOVA MEDICAL RECORD: [id number] : 61 LOCATION:[place] ADMISSION DATE: 08/31/20 Generatedon:110:11 Patient name: JULIO CESAR CASANOVA Patient #: [id number] SSN: : Date of study: 08/31/2020 Page: Of Hemodynamic Procedure Report Patient Data Patient Demographics Procedure consent was obtained First Name: JULIO CESAR Gender: Female Last Name: EDILBERTO : 1965 Middle Initial: AMADOR Age: 55 year(s) Patient #: [id number] Race: Additional ID: [id number] Contact details Address: [address] [place] [address] rd State: [facility] Zip code: [address] Past Medical History Performed procedures and imaging results Date Procedure Procedure Results Comments Stress testing Positive->Intermediate with SPECT MPI risk History of disease Date Diagnosis Comments CAD Allergies: No known allergies Admission Admission Data Admission Date: 08/31/2020 Admission Time: 7:15 Arrival Date: 08/31/2020 Arrival Time: 0:00 Height (in.): 61 BSA: 1.77 (m2) Height (cm.): 154.94 BMI: 32.49 (kg/m2) Weight (lbs.): 171.96 Weight (kg.): 78 Lab Results Lab Result Date: 08/31/2020 Lab Result Time: 0:00 Biochemistry Name Units Result Min Max BUN mg/dl 19 --(----)*- 7 18 CK-MB ng/ml 0.9 --(*---)-- 0 3.6 eGFR ml/min 67.26555 *-(----)-- 90 120 NONAFRICAN CBC Name Units Result Min Max Hematocrit % 43.4 --(*---)-- 42 54 Hemoglobin g/dl 15.1 --(-*--)-- 13.5 17.5 Procedure Procedure Types Cath Procedure Diagnostic Procedure [facility] w/Coronaries FFR/IVUS FFR Initial Sedation Charges Moderate Sedation 40-54 minutes PCI Procedure Coronary Stent Coronary Stent Initial Hemochron ACT Test Procedure Description Procedure Date Procedure Date: 08/31/2020 Procedure Start Time: 9:26 Procedure End Time: 10:05 Procedure Staff Name Function Wilmer Boyd RN Nurse Ashwin Medina MD Performing Physician Kathrin Reinoso RT Monitor RosinaDruidly RT Scrub Procedure Data Cath Procedure Fluoroscopy Diagnostic fluoroscopy Total fluoroscopy Time: 9.8 time: 9.8 min min Diagnostic fluoroscopy Total fluoroscopy dose: dose: 1300 mGy 1300 mGy Contrast Material Contrast Material Type Amount (ml) Isovue 300 122 Entry Location Entry Primary Successful Side Size Upsize Upsize Entry Closure Hilliard ccessful Closure Location (Fr) 1 (Fr) 2 (Fr) Remarks Device Remarks Radial Right 6 Fr Mechanical artery Short Compression Estimated blood loss: 10 ml Diagnostic catheters Device Type Used For End Catheter Placement DIAGNOSTIC [place] 110cm 5 Procedure Fr catheter ([id number]) DIAGNOSTIC AR1 MOD 5Fr Procedure catheter ([id number]) Procedure Complications No complications Procedure Medications Medication Administration Route Dosage Oxygen etCO2 Nasal cannula 2 l/min Heparin Flush Bag added to field 2 bags (1000units/500ml NS) 0.9% NaCl I.V. 100 ml/hr Lidocaine 2% added to field 20 Fentanyl I.V. 50 mcg Versed I.V. 1 mg Fentanyl I.V. 50 mcg Versed I.V. 1 mg Fentanyl I.V. 50 mcg Radial Cocktail added to field 1 syringe (Verapamil 2mg/Nitro 400mcg/Heparin 1500units) Radial Cocktail added to field 1 syringe (Verapamil 2mg/Nitro 400mcg/Heparin 1500units) Heparin Bolus I.V. 5000 units Integrilin (Bolus I.V. 6.8 ml 2mg/ml) Integrilin (Bolus wasted 3.2 ml 2mg/ml) Nitroglycerin IC/IA I.C. 150 mcg Plavix P.O. 600 mg Fentanyl I.V. 50 mcg Hemodynamics Rest BSA: 1.77 (m2) HGB: 15.1 (g/dl) O2 Consumption: Estimated: 170.5 (ml/min) O2 Con sumption indexed: Estimated:96.33 (ml/min/m) Heart Rate: 72 (bpm) Pressure Samples Time Site Value (mmHg) Purpose Heart Use Rate(bpm) 9:30 LV 161/1,10 Snapshot 109 9:30 LV 107/28,12 Pullback 96 9:30 AO 135/76(104) Pullback 96 Gradients Valve Time Site 1 Site 2 Mean SEP/DFP Peak To Heart Use (mmHg) (sec/min) Peak Rate (mmHg) (bpm) Aortic 9:30 LV AO 0 96 107/28,12 135/76(104) Calculations Valve P-P Mean Valve Index Valve Source Name Gradient Area Flow (cm2) Aortic 0 0 Snapshots Pre Cath Intra NCS Post Cath Vital Signs Time Heart Resp SPO2 etCO2 NIBP (mmHg) Rhythm Pain Sedation Rate (ipm) (%) (mmHg) Status Level (bpm) 9:06:43 66 16 97 0 155/73(122) NSR 0 (11) 10(A) , No pain 9:11:11 68 16 99 35.5 161/72(119) NSR 0 (11) 10(A) , No pain 9:15:40 75 17 100 35.5 166/66(123) NSR 0 (11) 10(A) , No pain 9:19:58 75 17 99 27.2 147/78(125) NSR 0 (11) 10(A) , No pain 9:24:20 71 17 99 36.3 160/76(127) NSR 0 (11) 10(A) , No pain 9:28:40 83 17 99 41.6 159/84(120) NSR 0 (11) 10(A) , No pain 9:39:36 104 17 96 30.2 127/72(121) NSR 0 (11) 10(A) , No pain 9:43:41 88 18 97 38.5 124/94(107) NSR 0 (11) 10(A) , No pain 9:47:51 87 17 98 43 137/76(100) NSR 0 (11) 10(A) , No pain 9:52:03 89 16 99 41.5 125/70(112) NSR 0 (11) 10(A) , No pain 9:56:15 91 17 98 35.5 130/69(114) NSR 0 (11) 10(A) , No pain 10:01:22 88 17 98 42.3 117/62(99) NSR 0 (11) 10(A) , No pain 10:05:38 78 11 98 40.8 114/58(80) NSR 0 (11) 10(A) , No pain Medications Time Medication Route Dose Verified Delivered Reason Not es Effectiveness by by 9:14:07 Oxygen etCO2 2 l/min Ashwin Guillen Per physician Nasal St Fco Boyd RN cannula 9:14:16 Heparin Flush added 2 bags Ashwin Guillen used for Bag to St Fco Boyd RN procedure (1000units/500ml field KHAN NS) 9:14:25 0.9% NaCl I.V. 100 Ashwin Guillen Per physician ml/hr St Fco Boyd RN, MD 9:14:37 Lidocaine 2% added 20ml Ashwin Guillen for local to vial St Fco Boyd RN anesthetic field KHAN 9:14:47 Fentanyl I.V. 50 mcg Ashwin Guillen for sedation St Fco Boyd RN, MD 9:14:56 Versed I.V. 1 mg Ashwin Guillen for sedation St Fco Boyd RN, MD 9:23:25 Fentanyl I.V. 50 mcg Ashwin Guillen for sedation St Fco Boyd RN, MD 9:23:27 Versed I.V. 1 mg Ashwin Guillen for sedation St Fco Boyd RN, MD 9:26:42 Fentanyl I.V. 50 mcg Ashwin Guillen for sedation St Fco Boyd RN, MD 9:27:42 Radial Cocktail added 1 Ashwin Guillen used for (Verapamil to syringe [facility] Fco Boyd fly raiser lockstitch 2mg/Nitro field KHAN 400mcg/Hepari 9:27:52 Radial Cocktail added 1 Ashwin Christopher for (Verapamil to syringe [facility] vasodilation 2mg/Nitro field MD KHAN 400mcg/Hepari 9:34:21 Fentanyl I.V. 50 mcg Ashwin Christopher for sedation St Fco Medina MD, MD 9:38:18 Heparin Bolus I.V. 5000 Ashwin Guillen for units St Fco Boyd RN anticoagulation 9:38:33 Integrilin I.V. 6.8 ml Ashwin Guillen for (Bolus 2mg/ml) St Fco Boyd RN anticoagulation 9:38:51 Integrilin wasted 3.2 ml Ashwin Guillen for (Bolus 2mg/ml) St Fco Boyd RN anticoagulation 9:55:35 Nitroglycerin I.C. 150 mcg Ashwin Christopher for IC/IA [facility] vasodilation MD KHAN 10:02:32 Plavix P.O. 600 mg Ashwin Christopher for [facility] antiplatelet MD KHAN therapy Procedure Log Time Note 8:12:01 Informed consent obtained and on chart 8:50:01 Kathrin Reinoso RT(R) sent for patient. Start room use. 8:50:27 Lab Result : BUN 19 mg/dl 8:50:28 Lab Result : Hemoglobin 15.1 g/dl 8:50:28 Lab Result : Hematocrit 43.4 % 8:50:28 Lab Result : CK-MB 0.9 ng/ml 8:50:28 Lab Result : eGFR NONAFRICAN 67.07194 ml/min 8:52:43 Patient Weight : 171.96 lbs 8:52:45 Patient Height : 61 inches 8:52:55 Arrival Date: 08/31/2020 12:00:00 AM 8:53:59 Procedure Status Elective Heart Cath (OP). 8:54:07 Time tracking: Regular hours (M-F 7:00 - 5:00) 8:54:11 Plan of Care:Hemodynamics will remain stable., Cardiac rhythm will remain stable., Comfort level will be maintained., Respiratory function will remain adequate., Patient/ family verbilizes understanding of procedure., Procedure tolerated without complication., Recovers from procedure without complications.. 8:54:29 H&P Date Dictated: 08/06/2020 Within 30 days and on chart., H&P Addendum completed by physician on day of procedure. (MUST COMPLETE FOR ALL OUTPATIENTS). 8:54:38 Patient allergic to No known allergies 8:57:11 Patient received from Pre/Post Procedure Room to CCL 2 Alert and oriented. Tansferred to table in Supine position. 8:57:12 ECG and BP/O2 sat monitors applied to patient. 8:57:12 Correct patient and procedure confirmed by team. 8:57:12 Warm blankets applied, and marian hugger turned on for patient comfort. 9:05:25 Vital chart was started 9:05:27 Baseline sample Acquired. 9:05:31 Rhythm: sinus rhythm 9:05:33 Full Disclosure recording started 9:05:35 Pre-procedure instructions explained to patient. 9:05:38 Family unavailable. 9:05:41 Patient NPO since Midnight. 9:05:43 Is the patient allergic to Iodine/contrast media? No. 9:05:45 Was the patient premedicated? Yes 9:05:49 Is patient on blood thinner?No 9:05:51 Patient diabetic? Yes. 9:05:52 If diabetic: On Metformin? Yes 9:05:58 If on Metformin: Last Dose? 08/26/2020 9:06:04 Patient not . Patient is over age 55. 9:06:09 Snore? Yes 9:06:15 Sleep apnea? No 9:06:21 Patient pain scale 0/10 ?. 9:06:28 IV patent on arrival in left forearm with 0.9% NaCl at O. 9:06:32 Lab results completed and on chart. 9:08:57 Stress Test: yes; abnormal ANTERIOR AND APICAL 9:09:00 Right Radial & Right Groin area was prepped with chlora-prep and draped in sterile fashion 9:09:01 Sharps counted by scrub and verified by R.N. 9:09:01 Alarms reviewed by R. N. 9:11:43 Stress Test: yes; abnormal ANTERIOR/APICAL 9:12:07 Physician arrived 9:12:08 --------ALL STOP TIME OUT------ 9:12:09 Final Timeout: patient, procedure, and site verified with staff and physician. All members of the team are in agreement. 9:12:11 Right Radial & Right Groin site verified by team. 9:12:15 Fire Safety Assessment: A--An alcohol-based skin anteseptic being used preoperatively., C--Open oxygen or nitrous oxide is being used., D--An ESU, laser, or fiber-optic light is being used. 9:12:19 Physical assessment completed. ASA score P 3 - A patient with severe systemic disease as per Ashwin Medina MD. 9:12:28 2) 60-89 Mildly reduced kidney function, and other findings (as for stage 1) point to kidney disease. 9:12:43 Maximum allowable contrast dose (3.7 X eGFR X 0.75)177 ml. 9:12:47 Sedation plan: IV Moderate Sedation Medication:Versed, Fentanyl 9:14:07 Oxygen 2 l/min etCO2 Nasal cannula was administered by Wilmer Boyd RN; Per physician; Verbal order read back and verified. 9:14:16 Heparin Flush Bag (1000units/500ml NS) 2 bags added to field was administered by Wilmer Boyd RN; used for procedure; Verbal order read back and verified. 9:14:25 0.9% NaCl 100 ml/hr I.V. was administered by Wilmer Boyd RN; Per physician; Verbal order read back and verified. 9:14:37 Lidocaine 2% 20ml vial added to field was administered by Wilmer Boyd RN; for local anesthetic; Verbal order read back and verified. 9:14:42 Use device set Radial Dx or PCI 9:14:45 ACIST Syringe (96682) opened to sterile field. 9:14:46 Medline Cath Pack ([id number]) opened to sterile field. 9:14:47 ACIST Hand Control (49226) opened to sterile field. 9:14:47 Bag Decanter (2002S) opened to sterile field. 9:14:47 Fentanyl 50 mcg I.V. was administered by Wilmer Boyd RN; for sedation; Verbal order read back and verified. 9:14:48 ACIST Manifold (22120) opened to sterile field. 9:14:53 MBrace Wrist Support ([id number]) opened to sterile field. 9:14:55 EMERALD Guide Wire (672-386) opened to sterile field. 9:14:56 SHEATH 6FR RAIN (0266887) opened to sterile field. 9:14:56 Versed 1 mg I.V. was administered by Wilmer Boyd RN; for sedation; Verbal order read back and verified. 9:23:25 Fentanyl 50 mcg I.V. was administered by Wilmer Boyd RN; for sedation; Verbal order read back and verified. 9:23:27 Versed 1 mg I.V. was administered by Wilmer Boyd RN; for sedation; Verbal order read back and verified. 9:25:22 Procedure started. 9:26:41 Local anesthetic to right radial artery with Lidocaine 2% by Ashwin Medina MD.INITIAL ACCESS ONLY 9::42 Fentanyl 50 mcg I.V. was administered by Wilmer Boyd RN; for sedation; Verbal order read back and verified. 9:27:14 A 6 Fr Short sheath was inserted into the Right Radial artery 9:27:42 Radial Cocktail (Verapamil 2mg/Nitro 400mcg/Heparin 1500units) 1 syringe added to field was administered by Wilmer Boyd RN; used for procedure; Verbal order read back and verified. 9:27:52 Radial Cocktail (Verapamil 2mg/Nitro 400mcg/Heparin 1500units) 1 syringe added to field was administered by Ashwin Medina MD; for vasodilation; Verbal order read back and verified. 9:29:00 A DIAGNOSTIC [place] 110cm 5 Fr catheter ([id number]) was advanced over the wire and used for Procedure. 9:29:34 Zero performed for pressure channel P1 9:29:45 LV angiography performed. 9:30:49 EF : 55 % 9:31:18 LCA angiography performed. 9:34:18 Catheter removed. 9:34:21 Fentanyl 50 mcg I.V. was administered by Ashwin Medina MD; for sedation; Verbal order read back and verified. 9:34:25 A DIAGNOSTIC AR1 MOD 5Fr catheter ([id number]) was advanced over the wire and used for Procedure. 9:36:14 RCA angiography performed. 9:36:21 Catheter removed. 9:36:27 GUIDE 6FR XBLAD 3.5 catheter ([id number]) opened to sterile field. 9:36:28 INFLATOR Merit BasixCompak (TS9555) opened to sterile field. 9:36:29 Enfield OmniWire (47655) opened to sterile field. 9:36:41 Proceeding to intervention. 9:37:00 6 Fr XBLAD3.5 guide catheter was inserted over the wire 9:38:18 Heparin Bolus 5000 units I.V. was administered by Wilmer Boyd RN; for anticoagulation; Verbal order read back and verified. 9:38:33 Integrilin (Bolus 2mg/ml) 6.8 ml I.V. was administered by Wilmer Boyd RN; for anticoagulation; Verbal order read back and verified. 9:38:51 Integrilin (Bolus 2mg/ml) 3.2 ml wasted was administered by Wilmer Boyd RN; for anticoagulation; Verbal order read back and verified. 9:41:37 Guide Catheter removed. unable to cannulate vessel. 9:41:38 GUIDE 6FR JL 3.5 guide catheter ([id number]) opened to sterile field. 9:41:53 6 Fr JL3.5 guide catheter was inserted over the wire 9:42:17 Pressure wire advanced. 9:47:46 ZEPHYR REGULAR TR BAND (796589) opened to sterile field. 9:48:24 Place stent Inflation Number: 1 A JONAH RX 2.5 x 22 stent ([id number]) was prepped and advanced across the Mid LAD . The stent was deployed at 14 ANNA for 0:13 (min:sec) . 9:48:57 Inflation number: 2 The stent balloon was then re-inflated across the Mid LAD to 14 ANNA for 0:04 (min:sec) . 9:50:21 Stent catheter was removed intact over wire. 9:52:02 Place stent Inflation Number: 1 A JONAH RX 3.0 x 18 stent ([id number]) was prepped and advanced across the Prox LAD 80. The stent was deployed at 14 ANNA for 0:30 (min:sec) . 9:55:35 Nitroglycerin IC/IA 150 mcg I.C. was administered by Ashwin Medina MD; for vasodilation; Verbal order read back and verified. 9:59:42 dLAD lesion measured at .93 with IFR 9:59:49 Guide Catheter removed. 10:00:08 Sheath removed intact; hemostasis achieved with Mechanical Compression to the Right Radial artery. 10:00:11 Procedure ended.(Physican Out) 10:00:28 Fluoroscopy time 09.80 minutes. 10:00:34 Fluoroscopy dose: 1300 mGy 10:00:34 Flurop Dose total: 1300 10:00:39 Dose Area Product 89488 mGy/cm. 10:00:46 Contrast amount:Isovue 300 122ml. 10:00:49 Maximum allowable dose exceeded? No. 10:01:27 Sharps counted by scrub and verified by R.N. 10:01:30 Sumrall band inflated with 10cc of air. 10:01:32 Insertion/operative site no bleeding no hematoma. 10:01:39 Post Procedure Pulses reassessed and unchanged 10:01:45 Post-procedure physical assessment completed. ASA score P 3 - A patient with severe systemic disease as per Ashwin Medina MD. 10:01:49 Post procedure rhythm: unchanged. 10:01:51 Estimated blood loss: 10 ml 10:01:54 Post procedure instruction explained to patient.Patient verbalizes understanding. 10:02:32 Plavix 600 mg P.O. was administered by Ashwin Medina MD; for antiplatelet therapy; Verbal order read back and verified. 10:03:02 Procedure type changed to Cath procedure, Diagnostic procedure, [facility], [facility] w/Coronaries, FFR/IVUS, FFR Initial, Sedation Charges, Moderate Sedation 40-54 minutes, PCI procedure, Coronary Stent, Coronary Stent Initial, Hemochron ACT Test 10:03:04 Procedure and supply charges have been captured, reviewed, submitted and are correct. 10:03:47 Procedure and supply charges have been captured, reviewed, submitted and are correct. 10:04:50 Procedure Complication : No complications 10:04:53 Vital chart was stopped 10:05:02 [facility] Findings: MVD- PCI performed (see procedure note) 10:05:06 Operative report dictated upon procedure completion. 10:05:07 See physician's report for complete and final results. 10:05:09 Report given to Pre/Post Procedure Room. 10:05:13 Patient transfered to Pre/Post Procedure Room with Stretcher. 10:05:15 Full Disclosure recording stopped 10:05:15 Procedure ended. 10:05:59 End room use (Document Last) 10:06:27 ACT drawn and resulted at HIGH seconds. (normal therapeutic range 180-240 seconds). 10:07:28 ACT drawn and resulted at ? seconds. (normal therapeutic range 180-240 seconds). Intervention Summary Intervention Notes Time ActionType Lesion and Equipment Used Action# Pressure Duration Attributes 9:48:24 Place stent Mid LAD JONAH RX 2.5 x 1 14 00:13 22 stent ([id number]) 9:48:57 Reinflate Mid LAD JONAH RX 2.5 x 2 14 00:04 stent 22 stent balloon ([id number]) 9:52:02 Place stent Prox LAD JONAH RX 3.0 x 1 14 00:30 18 stent ([id number]) Device Usage Item Name Manufacture Quantity Catalog Hospital Part Current [facility] Lot# / Number Charge Number Stock Stock Serial# Code ACIST Syringe Acist 1 81523 282278 542871 694130 20 (58786) ConsortiEX Inc Medline Cath Medline 1 [id number] 741237 00474 345045 5 Pack ([id number]) Bag Decanter Microtek 1 588662 55073 674458 5 (2002S) Medical Inc. ACIST Hand Acist 1 27023 148038 684777 402752 5 Control Medical (45565) Systems Inc ACIST Manifold Acist 1 42720 913034 535189 097725 5 (31016) Medical Systems Inc MBrace Wrist Advanced 1 140-0250-00 761261 15060 184718 5 Support Vascular ([id number]) Dynamics EMERALD Guide Cardinal 1 502-455 799081 716945 629271 5 Wire (502-455) Health SHEATH 6FR Cardinal 1 6526341 141890 9394238 636082 5 RAIN (9510846) Health DIAGNOSTIC Terumo 1 40-1923 459755 439579 838513 5 [place] 110cm 5 Fr catheter (354950) DIAGNOSTIC AR1 Cardinal 1 [id number] 128089 018481 740454 15 MOD 5Fr Health catheter (490139B) GUIDE 6FR Cardinal 1 [id number] 757928 447419 375890 10 XBLAD 3.5 Health catheter (98309174) INFLATOR Merit Merit 1 LS3846 154318 762948 826788 15 NanoRacks (SA1205) Enfield Enfield 1 1167751 567307 19911 9989 5 OmniWire (89159) GUIDE 6FR JL Medtronic 1 [id number] 867470 15875 085882 1 3.5 guide catheter (MX4WK60) ZEPHYR REGULAR Cardinal 1 460941 554320 9714953 420595 5 TR BAND Health (762619) JONAH RX 2.5 x Medtronic 1 [id number] 116881 8392312 007862 5 [id number] 22 stent ([id number]) JONAH RX 3.0 x Medtronic 1 [id number] 920248 4168820 083835 5 [id number] 18 stent ([id number]) Signature Audit [place] Stage Time Signature Unsigned Intra-Procedure 08/31/2020 Kathrin Reinoso 10:06:47 AM RT(R) Intra-Procedure 08/31/2020 Wilmer Boyd 10:07:28 AM RN Intra-Procedure 08/31/2020 Ashwin Sanches 10:10:54 AM Fco KHAN Signatures Nurse : Wilmer Boyd RN Signature : Date : Time : Performing Physician : Signature : Ashwin Carol MD Date : Time : Monitor : Kathrin Kemar Signature : RT Date : Time : [address] [place] [address]
[2020-08-31] MEDS ORDERED: TOUJEO SOL300 UNIT/1 SC (07:37)
[2020-08-31] MEDS ORDERED: ZOCOR40 MG PO (07:37)
[2020-08-31 07:41] VITALS: BP 175/83; Ht 154.9 cm; Wt 77.6 kg
[2020-08-31 07:59] LABS: HEMATOCRIT 43.4 % (36.0-48.0); HEMOGLOBIN 15.1 g/dL (12-16); LYMPHOCYTE ABS# 4.14 10x3/uL (1.18-3.74); MCHC 34.8 g/dL (31.0-37.0); MCV 89.1 fL (80.0-100.0); MEAN PLATELET VOLUME 10.1 fL (7.4-10.4); NEUTROPHIL ABS# 2.55 10x3/uL (1.56-6.13); RBC 4.87 10x6/uL (4.00-5.40); RDW 12.2 % (11.5-14.5); WBC 7.6 10x3/uL (4.8-10.8)
[2020-08-31 08:01] LABS: PLATELET COUNT 219 10x3/uL (130-400)
[2020-08-31 08:10] LABS: ALT (SGPT) 37 U/L (10-68); CALC OSMOLALITY 282 mosm/kg (275-300); CALCIUM 9.9 mg/dL (8.5-10.1); CARBON DIOXIDE 26.1 mmol/L (21.0-32.0); CHLORIDE - SERUM 104 mmol/L (98-107); CHOL - HDL RATIO 6.6 ratio (2.3-4.1); CHOLESTEROL, TOTAL 243 mg/dL (0-200); CREATININE - SERUM 0.9 mg/dL (0.6-1.3); GLUCOSE 149 mg/dL (74-106); HDL CHOLESTEROL 37 mg/dL (32-96); POTASSIUM - SERUM 3.8 mmol/L (3.5-5.1); SODIUM 139 mmol/L (136-145); TRIGLYCERIDE 430 mg/dL (30-200); UREA NITROGEN 19 mg/dL (7-18); eGFR NON AFRICAN AMERICAN 68 mL/min (90-120)
[2020-08-31 09:56] LABS: EOSINOPHILS 4 % (0-7); LYMPHOCYTES 46 % (15-50); MONOCYTES 10 % (2-11); NEUTROPHILS 40 % (40-80); PLATELET ESTIMATE NORMAL
[2020-08-31 09:57] LABS: ROULEAUX OCC
--- NOTE | 2020-08-31 10:24 | NUR ---
PT ARRIVED BY STRETCHER. PLACED ON MONITORS. ASSESSMENT COMPLETED. CALL LIGHT WITHIN REACH. VSS AT THIS TIME. PT RESTING COMFORTABLY.
--- NOTE | 2020-08-31 10:40 | NUR ---
PT RESTING COMFORTABLY. VSS. RIGHT WRIST Z BAND IN PLACE. NO BLEEDING/HEMATOMA NOTED. PT C/O SOME INDIGESTION FROM PLAVIX. GIVEN SIPS OF SPRITE. TOLERATED WELL. REPORTS THAT MADE HER THROAT FEEL BETTER.
--- NOTE | 2020-08-31 11:10 | NUR ---
RIGHT WRIST Z BAND IN PLACE. NO BLEEDING/HEMATOMA NOTED. VSS AT THIS TIME. CALL LIGHT WITHIN REACH. PT RESTING COMFORTABLY.
--- NOTE | 2020-08-31 11:40 | NUR ---
RIGHT WRIST Z BAND IN PLACE. NO BLEEDING/HEMATOMA NOTED. CALL LIGHT WITHIN REACH. VSS AT THIS TIME. NO NEEDS.
--- NOTE | 2020-08-31 12:10 | NUR ---
RIGHT WRIST Z BAND IN PLACE. NO BLEEDING/HEMATOMA NOTED. CALL LIGHT WITHIN REACH. PT RESTING COMFORTABLY. AT THIS TIME. NO NEEDS.
--- NOTE | 2020-08-31 12:40 | NUR ---
RIGHT WRIST Z BAND IN PLACE. NO BLEEDING/HEMATOMA NOTED. PT ALERT AND ORIENTED. DOES NOT WANT FOOD AT THIS TIME. WANTS TO EAT AFTER SHE LEAVES HOSPITAL. DENIES NAUSEA/PAIN. TOLERATING SODA. NO NEEDS AT THIS TIME. RESTING COMFORTABLY.
--- NOTE | 2020-08-31 13:00 | NUR ---
2cc OF AIR REMOVED FROM Z BAND. NO BLEEDING/HEMATOMA NOTED. PT TOLERATED WELL. VSS AT THIS TIME. CALL LIGHT WITHIN REACH. NO NEEDS.
--- NOTE | 2020-08-31 13:15 | NUR ---
3cc OF AIR REMOVED FROM Z BAND. NO BLEEDING/HEMATOMA NOTED. CALL LIGHT WITHIN REACH. VSS AT THIS TIME. DENIES NEEDS.
--- NOTE | 2020-08-31 13:30 | NUR ---
5cc OF AIR REMOVED FROM Z BAND. NO BLEEDING/HEMATOMA NOTED. CALL LIGHT WITHIN REACH. VSS AT THIS TIME. NO NEEDS.
--- NOTE | 2020-08-31 13:44 | NUR ---
Z BAND REMOVED AND DRESSING APPLIED. NO BLEEDING/HEMATOMA NOTED. TOLERATED WELL. RIGHT WRIST BRACE IN PLACE. PIV D/C'D WITH CATH TIP INTACT. TOLERATED WELL. PT INSTRUCTED TO GET UP AND DRESSED AT THIS TIME. DISCUSSED DISCHARGE INSTRUCTIONS WITH PT. SHE VOICED UNDERSTANDING.
--- NOTE | 2020-08-31 14:00 | NUR ---
PT AMBULATED TO RESTROOM. VOIDED WITHOUT DIFFICULTY. STEADY GAIT NOTED. PT TAKEN OUT TO VEHICLE BY WHEELCHAIR. NO S/S OF DISTRESS NOTED. ALL BELONGINGS AND PAPERWORK IN HAND. RIGHT WRIST DRESSING C/D/I. NO S/S OF HEMATOMA NOTED.
--- NOTE | 2020-09-01 13:58 | OP ---
PATIENT NAME: JULIO CESAR CASANOVA MEDICAL RECORD: [id number] :61 LOCATION:[facility] ADMISSION DATE: SURGEON: MANOLO CAMACHO MD DATE OF OPERATION: 08/31/2020 PROCEDURE: Left heart catheterization, selective coronary angiography plus IFR wire to the LAD plus stenting of the LAD times 2, right radial approach. CATHETERS: Radial sheath, Battiest catheter. The procedure was well tolerated. The patient returned to the ferrell. Sheath removed. TR band was placed. FINDINGS: Left ventriculography in 30-degree [place] view: Normal wall motion, normal systolic function. CORONARY ANATOMY: Left main: Left main is free of disease. LAD: Has 2 stenosis, 1 just proximal to the previously placed stent, 1 more diffuse distal previously placed stent. CIRCUMFLEX: Free of disease. Right coronary artery: Has a mid portion 80% stenosis. PDA: Has a 90% stenosis takeoff. IMPRESSION: Two-vessel disease correlating with nuclear study. PLAN: Intervention of the LAD right in a staged fashion. DESCRIPTION OF PROCEDURE: After using the indwelling sheath, a JL 3.5 guiding catheter provided excellent guide support. The distal stenosis to 80% and the LAD was addressed with a 2.5 x 22 mm Onxy drug-eluting stent up to 14 atmospheres. The proximal stenosis just passed the left main takeoff and 90% was addressed with a 3.0 x 18 mm Onxy drug-eluting stent, again at 14 atmospheres for 45 seconds. Final angiography shows excellent resolution of both 80% stenosis, no significant residual. DOMINIQUE flow 3 throughout the procedure. IFR wire post was 94. IMPRESSION: Successful percutaneous transluminal coronary angioplasty stent of LAD. Plan intervention of the right at a later date. TRANSINT:[id number] Voice Confirmation ID: [id number] DOCUMENT ID: [id number] MANOLO CAMACHO MD at 1358 CC: [id number] DICTATION DATE: 08/31/20 1008 HAND COPER: 08/31/20 1756 [facility] 08/31/20 [facility] [address] [place] [address]
== END 2020-08-31 14:00 | disposition home or self-care (01) ==
LOC: D.CATH 07:15
PROVIDERS: ATTEND Internal Medicine Interventional Cardiology
DX: R07.9 Chest pain, unspecified (principal); I25.118 Atherosclerotic heart disease of native coronary artery with other forms of angina pectoris; E11.9 Type 2 diabetes mellitus without complications; E78.5 Hyperlipidemia, unspecified; I10 Essential (primary) hypertension

== ENCOUNTER 2020-09-14 06:56 | Day surgery (SDC) | payer BC ==
[~2020-09-14] VITALS: Ht 154.9 cm; Wt 77.2 kg
--- NOTE | ~2020-09-14 | HEMODYNAMI ---
PATIENT:JULIO CESAR CASANOVA MEDICAL RECORD: [id number] : 61 LOCATION:[facility] ADMISSION DATE: 09/14/20 Generatedon:19:24 Patient name: JULIO CESAR CASANOVA Patient #: [id number] SSN: : Date of study: 09/14/2020 Page: Of Hemodynamic Procedure Report Patient Data Patient Demographics Procedure consent was obtained First Name: JULIO CESAR Gender: Female Last Name: EDILBERTO : 1965 Middle Initial: AMADOR Age: 55 year(s) Patient #: [id number] Race: Additional ID: [id number] Contact details Address: [address] [place] [address] rd State: [facility] Zip code: [address] Past Medical History History of disease Date Diagnosis Comments CAD Allergies: No known allergies Admission Admission Data Admission Date: 09/14/2020 Admission Time: 6:56 Arrival Date: 09/14/2020 Arrival Time: 0:00 Height (in.): 61 BSA: 1.76 (m2) Height (cm.): 154.94 BMI: 32.07 (kg/m2) Weight (lbs.): 169.76 Weight (kg.): 77 Lab Results Lab Result Date: 09/14/2020 Lab Result Time: 0:00 Biochemistry Name Units Result Min Max BUN mg/dl 13 --(--*-)-- 7 18 Creatinine mg/dl 1 --(--*-)-- 0.6 1.3 eGFR ml/min 61.34596 *-(----)-- 90 120 NONAFRICAN CBC Name Units Result Min Max Hematocrit % 43.7 --(*---)-- 42 54 Hemoglobin g/dl 15 --(-*--)-- 13.5 17.5 Procedure Procedure Types Cath Procedure Diagnostic Procedure FFR/IVUS FFR Initial Sedation Charges Moderate Sedation 25-39 minutes PCI Procedure Coronary Stent Coronary Stent Initial Coronary Stent Additional Hemochron ACT Test Procedure Description Procedure Date Procedure Date: 09/14/2020 Procedure Start Time: 8:49 Procedure End Time: 9:20 Procedure Staff Name Function Ashwin Medina MD Performing Physician Kathrin Reinoso RT Monitor Rosina Oro RT Scrub Lilly Francisco RN Nurse Procedure Data Cath Procedure Fluoroscopy Diagnostic fluoroscopy Total fluoroscopy Time: 7.1 time: 7.1 min min Diagnostic fluoroscopy Total fluoroscopy dose: 637 dose: 637 mGy mGy Contrast Material Contrast Material Type Amount (ml) Isovue 300 98 Entry Location Entry Primary Successful Side Size Upsize Upsize Entry Closure Succes sful Closure Location (Fr) 1 (Fr) 2 (Fr) Remarks Device Remarks Femoral Right 6 Fr Exoseal artery Short Estimated blood loss: 10 ml Procedure Complications No complications Procedure Medications Medication Administration Route Dosage Oxygen etCO2 Nasal cannula 2 l/min Heparin Flush Bag added to field 2 bags (1000units/500ml NS) Lidocaine 2% added to field 20 0.9% NaCl I.V. 100 ml/hr Fentanyl I.V. 50 mcg Versed I.V. 1 mg Fentanyl I.V. 50 mcg Versed I.V. 1 mg Versed I.V. 1 mg Heparin Bolus I.V. 4000 units Hemodynamics Rest BSA: 1.76 (m2) HGB: 15 (g/dl) O2 Consumption: Estimated: 171.84 (ml/min) O2 Cons umption indexed: Estimated:97.64 (ml/min/m) Heart Rate: 75 (bpm) Snapshots Pre Cath Intra NCS Post Cath Vital Signs Time Heart Resp SPO2 etCO2 NIBP (mmHg) Rhythm Pain Sedation Rate (ipm) (%) (mmHg) Status Level (bpm) 8:14:15 74 14 100 38 143/79(114) NSR 0 (11) 10(A) , No pain 8:18:35 75 15 100 37.3 149/74(110) NSR 0 (11) 10(A) , No pain 8:22:57 73 14 100 37.3 147/75(110) NSR 0 (11) 10(A) , No pain 8:27:13 75 14 100 38 149/77(109) NSR 0 (11) 10(A) , No pain 8:31:36 79 15 99 37.3 149/67(103) NSR 0 (11) 10(A) , No pain 8:35:54 90 17 100 30.6 148/87(106) NSR 0 (11) 10(A) , No pain 8:40:14 94 17 100 37.3 164/81(114) NSR 0 (11) 10(A) , No pain 8:44:36 91 16 100 37.3 160/76(117) NSR 0 (11) 10(A) , No pain 8:48:56 93 10 100 38 152/80(131) NSR 0 (11) 9(A) , No pain 8:54:10 90 13 99 38.8 160/78(130) NSR 0 (11) 9(A) , No pain 8:59:29 99 12 98 40.3 130/67(109) NSR 0 (11) 9(A) , No pain 9:04:38 99 13 99 39.6 139/74(103) NSR 0 (11) 9(A) , No pain 9:08:54 95 14 99 38.1 141/70(109) NSR 0 (11) 9(A) , No pain 9:13:13 100 14 99 40.3 151/73(112) NSR 0 (11) 9(A) , No pain 9:17:28 95 13 98 41.1 130/78(98) NSR 0 (11) 9(A) , No pain Medications Time Medication Route Dose Verified Delivered Reason Notes Effectiveness by by 8:44:24 Oxygen etCO2 2 Lilly Lilly for low 02 sats Nasal l/min Nolan Francisco, cannula RN RN 8:44:35 Heparin Flush added 2 Lilly Lilly used for Bag to bags Nolan Francisco procedure (1000units/500ml RN RN NS) 8:44:48 Lidocaine 2% added 20ml Lilly Ashwin for local to vial St Fco Francisco anesthetic field MICHELLE KHAN 8:44:59 0.9% NaCl I.V. 100 Lilly Lilly Per physician ml/hr Nolan Francisco, RN RN 8:47:59 Fentanyl I.V. 50 Lilly Lilly for sedation mcg Nolan Francisco, MICHELLE RN 8:48:04 Versed I.V. 1 mg Lilly Lilly for sedation Nolan Francisco RN RN 8:52:46 Fentanyl I.V. 50 Lilly Lilly for sedation mcg Nolan Francisco RN RN 8:52:49 Versed I.V. 1 mg Lilly Lilly for sedation Nolan Francisco RN RN 8:55:35 Versed I.V. 1 mg Lilly Lilly for sedation Nolan Francisco RN RN 8:56:53 Heparin Bolus I.V. 4000 Lilly Lilly for verifi ed units Nolan Francisco, anticoagulation w RN MICHELLE gaines Procedure Log Time Note 7:56:26 Informed consent obtained and on chart 7:56:45 Kathrin Reinoso RT(R) sent for patient. Start room use. 7:56:48 Procedure Status Elective Heart Cath (OP), PCI. 7:56:55 Time tracking: Regular hours (M-F 7:00 - 5:00) 7:56:58 Plan of Care:Hemodynamics will remain stable., Cardiac rhythm will remain stable., Comfort level will be maintained., Respiratory function will remain adequate., Patient/ family verbilizes understanding of procedure., Procedure tolerated without complication., Recovers from procedure without complications.. 7:57:03 H&P Date Dictated: 09/14/2020 Within 30 days and on chart., H&P Addendum completed by physician on day of procedure. (MUST COMPLETE FOR ALL OUTPATIENTS). 7:57:09 Patient allergic to No known allergies 8:01:06 Patient Weight : 169.76 lbs 8:01:13 Patient Height : 61 inches 8:01:21 Arrival Date: 09/14/2020 12:00:00 AM 8:02:15 Patient received from Pre/Post Procedure Room to CCL 2 Alert and oriented. Tansferred to table in Supine position. 8:02:16 Warm blankets applied, and marian hugger turned on for patient comfort. 8:02:16 Correct patient and procedure confirmed by team. 8:02:16 ECG and BP/O2 sat monitors applied to patient. 8:13:05 Vital chart was started 8:13:09 Baseline sample Acquired. 8:13:14 Rhythm: sinus rhythm 8:13:15 Full Disclosure recording started 8:13:19 Pre-procedure instructions explained to patient. 8:13:19 Pre-op teaching completed and patient verbalized understanding. 8:13:21 Family unavailable. 8:13:23 Patient NPO since Midnight. 8:13:24 Is patient on blood thinner?Yes 8:13:26 ACC The patient was administered the following blood thiners within the last 24 hours: ACCPlavix 8:13:28 Patient diabetic? No. 8:13:32 Patient not . Patient is over age 55. 8:13:34 Previous problem with sedation/anesthesia? No ? 8:13:36 Snore? Yes 8:13:41 Sleep apnea? No 8:13:42 Deviated septum? No 8:13:47 Opens mouth fully? Yes 8:13:48 Sticks out tongue? Yes 8:13:50 Airway obstruction? No ? 8:13:52 Dentures? No ? 8:13:57 Pre procedure: right dorsailis pedis pulse 1+ Palpable, but thready & weak; easily obliterated 8:14:00 Patient pain scale 0/10 ?. 8:14:08 IV patent on arrival in left hand with 0.9% NaCl at [facility]. 8:15:14 Lab Result : BUN 13 mg/dl 8:15:14 Lab Result : Creatinine 1 mg/dl 8:15:14 Lab Result : eGFR NONAFRICAN 61.18190 ml/min 8:15:14 Lab Result : Hemoglobin 15 g/dl 8:15:14 Lab Result : Hematocrit 43.7 % 8:15:18 Lab results completed and on chart. 8:15:22 Right groin area was prepped with chlora-prep and draped in sterile fashion 8:15:23 Alarms reviewed by R. N. 8:15:23 Sharps counted by scrub and verified by R.N. 8:32:52 Physician arrived 8:32:55 --------ALL STOP TIME OUT------ 8:38:57 Final Timeout: patient, procedure, and site verified with staff and physician. All members of the team are in agreement. 8:39:01 Right groin site verified by team. 8:39:05 Fire Safety Assessment: A--An alcohol-based skin anteseptic being used preoperatively., C--Open oxygen or nitrous oxide is being used., D--An ESU, laser, or fiber-optic light is being used. 8:40:13 Physical assessment completed. ASA score P 3 - A patient with severe systemic disease as per Ashwin Medina MD. 8:40:18 2) 60-89 Mildly reduced kidney function, and other findings (as for stage 1) point to kidney disease. 8:40:23 Maximum allowable contrast dose (3.7 X eGFR X 0.75)169 ml. 8:40:28 Sedation plan: IV Moderate Sedation Medication:Versed, Fentanyl 8:40:41 Use device set Femoral Dx 8:40:45 ACIST Syringe (26160) opened to sterile field. 8:40:45 Bag Decanter (2002S) opened to sterile field. 8:40:46 Medline Cath Pack ([id number]) opened to sterile field. 8:40:47 ACIST Hand Control (40168) opened to sterile field. 8:40:48 ACIST Manifold (29551) opened to sterile field. 8:40:53 EMERALD Guide Wire (489-614) opened to sterile field. 8:41:08 SHEATH 6FR [place] (XVM908) opened to sterile field. 8:41:19 INFLATOR Merit BasixCompak (LS2697) opened to sterile field. 8:44:24 Oxygen 2 l/min etCO2 Nasal cannula was administered by Lilly Francisco RN; for low 02 sats; Verbal order read back and verified. 8:44:35 Heparin Flush Bag (1000units/500ml NS) 2 bags added to field was administered by Lilly Francisco RN; used for procedure; Verbal order read back and verified. 8:44:48 Lidocaine 2% 20ml vial added to field was administered by Ashwin Medina MD; for local anesthetic; Verbal order read back and verified. 8:44:59 0.9% NaCl 100 ml/hr I.V. was administered by Lilly Francisco RN; Per physician; Verbal order read back and verified. 8:45:57 Zero performed for pressure channel P1 8:46:41 GUIDE 6FR HS I catheter (LA6HSI) opened to sterile field. 8:46:42 Winton OmniWire (20778) opened to sterile field. 8:47:01 Procedure started. 8:47:59 Fentanyl 50 mcg I.V. was administered by Lilly Francisco RN; for sedation; Verbal order read back and verified. 8:48:04 Versed 1 mg I.V. was administered by Lilly Francisco RN; for sedation; Verbal order read back and verified. 8:49:25 Local anesthetic to right femoral artery with Lidocaine 2% by Ashwin Medina MD.INITIAL ACCESS ONLY 8:49:39 A 6 Fr Short sheath was inserted into the Right Femoral artery 8:52:46 Fentanyl 50 mcg I.V. was administered by Lilly Francisco RN; for sedation; Verbal order read back and verified. 8:52:49 Versed 1 mg I.V. was administered by Lilly Francisco RN; for sedation; Verbal order read back and verified. 8:53:10 GUIDE 6FR HS I SH catheter ([id number]) opened to sterile field. 8:53:24 6 Fr ? guide catheter was inserted over the wire 8:53:35 Guide Catheter removed. pressure damping. 8:53:46 6 Fr HS1SH guide catheter was inserted over the wire 8:54:33 omni wire advanced. 8:54:41 Pressure wire advanced. 8:55:35 Versed 1 mg I.V. was administered by Lilly Francisco RN; for sedation; Verbal order read back and verified. 8:56:53 Heparin Bolus 4000 units I.V. was administered by Lilly Francisco RN; for anticoagulation; verified w dr gaines Verbal order read back and verified. 8:58:16 Inflate balloon Inflation number: 1 A EUPHORA 3.0 x 15 Balloon ([id number]) was prepped and advanced across the R PDA 80, then inflated to 10 ANNA for 0:18 (min:sec) 0. 8:58:40 Balloon removed over the wire. 9:01:03 Place stent Inflation Number: 2 A JONAH RX 3.0 x 12 stent ([id number]) was prepped and advanced across the R PDA 0. The stent was deployed at 12 ANNA for 0:21 (min:sec) . 9:01:59 Stent catheter was removed intact over wire. 9:04:02 Place stent Inflation Number: 1 A JONAH RX 3.0 x 12 stent ([id number]) was prepped and advanced across the Mid RCA 80. The stent was deployed at 14 ANNA for 0:25 (min:sec) 0. 9:04:38 Stent catheter was removed intact over wire. 9:07:16 dRCA lesion measured at .74 with IFR 9:07:56 stent balloon was inserted 9:08:14 Inflation number: 3 The stent balloon was then re-inflated across the R PDA to 14 ANNA for 0:11 (min:sec) . 9:08:43 Inflation number: 2 The stent balloon was then re-inflated across the Mid RCA 0 to 16 ANNA for 0:12 (min:sec) . 9:09:11 Stent catheter was removed intact over wire. 9:11:01 dRCA lesion measured at .85 with IFR 9:11:33 Stent catheter was removed intact over wire. 9:11:37 Wire removed. 9:11:38 Guide catheter removed. 9:12:51 Sheath removed intact; hemostasis achieved with Exoseal to the Right Femoral artery. 9:12:55 Procedure ended.(Physican Out) 9:15:06 ACT drawn and resulted at 218 seconds. (normal therapeutic range 180-240 seconds). 9:15:24 Fluoroscopy time 07.10 minutes. 9:15:30 Fluoroscopy dose: 637 mGy 9:15:30 Flurop Dose total: 637 9:15:34 Dose Area Product 35028 mGy/cm. 9:15:38 Contrast amount:Isovue 300 98ml. 9:15:40 Maximum allowable dose exceeded? No. 9:15:41 Sharps counted by scrub and verified by R.N. 9:16:07 Insertion/operative site no bleeding no hematoma. 9:16:12 Post-op/insertion site Right Femoral artery dressed using a 4 x 4 and Tegaderm. 9:16:14 Post Procedure Pulses reassessed and unchanged 9:16:24 Post-procedure physical assessment completed. ASA score P 3 - A patient with severe systemic disease as per Ashwin Medina MD. 9:16:39 Post procedure rhythm: sinus rhythm 9:16:42 Estimated blood loss: 10 ml 9:16:44 Post procedure instruction explained to patient.Patient verbalizes understanding. 9:18:49 Procedure type changed to Cath procedure, Diagnostic procedure, FFR/IVUS, FFR Initial, Sedation Charges, Moderate Sedation 25-39 minutes, PCI procedure, Coronary Stent, Coronary Stent Initial, Coronary Stent Additional, Hemochron ACT Test 9:18:51 Procedure and supply charges have been captured, reviewed, submitted and are correct. 9:20:26 Procedure Complication : No complications 9:20:29 Vital chart was stopped 9:20:32 See physician's report for complete and final results. 9:20:34 Report given to Pre/Post Procedure Room. 9:20:37 Patient transfered to Pre/Post Procedure Room with Stretcher. 9:20:39 Procedure ended. 9:20:39 Full Disclosure recording stopped 9:20:46 End room use (Document Last) 9:23:28 End room use (Document Last) 9:24:23 End room use (Document Last) Intervention Summary Intervention Notes Time ActionType Lesion and Equipment Used Action# Pressure Duration Attributes 8:58:16 Inflate R PDA EUPHORA 3.0 x 1 10 00:19 balloon 15 Balloon ([id number]) 9:01:03 Place stent R PDA JONAH RX 3.0 x 2 12 00:21 12 stent ([id number]) 9:04:02 Place stent Mid RCA JONAH RX 3.0 x 1 14 00:25 12 stent ([id number]) 9:08:14 Reinflate R PDA JONAH RX 3.0 x 3 14 00:11 stent 12 stent balloon ([id number]) 9:08:43 Reinflate Mid RCA JONAH RX 3.0 x 2 16 00:12 stent 12 stent balloon ([id number]) Device Usage Item Name Manufacture Quantity Catalog Hospital Part [facility] Lot# / Number Charge Number Stock Stock Serial# Code ACIST Syringe Acist 1 82315 868597 586398 012305 20 (69081) Medical Systems Inc Bag Decanter Microtek 1 137457 46880 800655 5 () Medical Inc. Medline Cath Medline 1 [id number] 155288 33399 356986 5 Pack ([id number]) ACIST Hand Acist 1 61003 615933 488027 655250 5 Control Medical (24342) Systems Inc ACIST Manifold Acist 1 08237 316460 647848 901896 5 (74042) Medical Systems Inc EMERALD Guide Cardinal 1 547-306 444199 766654 380032 5 Wire (092-820) Health SHEATH 6FR Terumo 1 [id number] 427068 427755 586813 40 [place] (UFP340) INFLATOR Merit Merit 1 [id number] 936230 211759 254875 15 BasixCompak Medical (FL9595) GUIDE 6FR HS I Medtronic 1 LA6HSI 573448 29184 705926 1 catheter (LA6HSI) Winton Winton 1 6722414 469004 25947 9977 5 OmniWire (08264) GUIDE 6FR HS I Medtronic 1 [id number] 428109 03019 163983 1 SH catheter ([id number]) EUPHORA 3.0 x Medtronic 1 [id number] 352296 890767 037782 5 [id number] 15 Balloon ([id number]) JONAH RX 3.0 x Medtronic 2 [id number] 085213 5914432 342048 5 [id number] 12 stent [id number] ([id number]) Signature Audit [place] Stage Time Signature Unsigned Intra-Procedure 09/14/2020 Kathrin Reinoso 9:23:28 AM RT(R) Intra-Procedure 09/14/2020 Lilly Francisco, 9:24:23 AM RN Intra-Procedure 09/14/2020 Ashwin Sanches 9:24:44 AM Fco KHAN Signatures Performing Physician : Signature : Ashwin Medina MD Date : Time : Monitor : Kathrin Reinoso Signature : RT Date : Time : Nurse : Lilly Francisco, Signature : RN Date : Time : [address] [place] [address]
[~2020-09-14 06:56] MED LIST changes: +TOUJEO SOL300 UNIT/1 SC; +ZOCOR40 MG PO
[2020-09-14 07:35] VITALS: BP 151/69; Ht 154.9 cm; Wt 77.2 kg
[2020-09-14 08:04] LABS: ANION GAP 13.4 mmol/L (8-16); CALCIUM 9.9 mg/dL (8.5-10.1); CARBON DIOXIDE 24.7 mmol/L (21.0-32.0); CHOL - HDL RATIO 4.9 ratio (2.3-4.1); LDL-HDL RATIO 2.3 ratio (1.5-3.5); POTASSIUM - SERUM 4.1 mmol/L (3.5-5.1)
[2020-09-14 08:05] LABS: BASOPHILS 0.4 % (0-2); EOSINOPHILS 2.2 % (0-7); HEMATOCRIT 43.7 % (36.0-48.0); IMMATURE GRANULOCYTES 0.4 % (0-5); LYMPHOCYTES 47.1 % (15-50); MCH 30.9 pg (26.0-34.0); MCHC 34.3 g/dL (31.0-37.0); MCV 90.1 fL (80.0-100.0); MEAN PLATELET VOLUME 10.7 fL (7.4-10.4); MONOCYTES 7.1 % (2-11); NEUTROPHIL ABS# 3.65 10x3/uL (1.56-6.13); NEUTROPHILS 42.8 % (40-80); PLATELET COUNT 257 10x3/uL (130-400); RBC 4.85 10x6/uL (4.00-5.40); RDW 12.2 % (11.5-14.5); WBC 8.5 10x3/uL (4.8-10.8)
--- NOTE | 2020-09-14 09:32 | NUR ---
PT ARRIVED BY STRETCHER. PLACED ON MONITORS. ASSESSMENT COMPLETED. VSS AT THIS TIME. CALL LIGHT WITHIN REACH.
--- NOTE | 2020-09-14 09:45 | NUR ---
PT RESTING COMFORTABLY. VSS AT THIS TIME. RIGHT GROIN DRESSING C/D/I. NO S/S OF HEMATOMA NOTED. RIGHT PEDAL PULSE PALPABLE AT THIS TIME. NO NEEDS. CALL LIGHT WITHIN REACH.
--- NOTE | 2020-09-14 10:15 | NUR ---
RIGHT GROIN DRESSING C/D/I. NO S/S OF HEMATOMA NOTED. CALL LIGHT WITHIN REACH. VSS AT THIS TIME. RIGHT PEDAL PULSE PALPABLE.
--- NOTE | 2020-09-14 10:45 | NUR ---
RIGHT GROIN DRESSING C/D/I. NO S/S OF HEMATOMA NOTED. RIGHT PEDAL PULSE PALPABLE. PT RESTING COMFORTABLY. NO NEEDS AT THIS TIME.
--- NOTE | 2020-09-14 11:30 | NUR ---
RIGHT GROIN DRESSING C/D/I. NO S/S OF HEMATOMA NOTED. RIGHT PEDAL PULSE PALPABLE. PT RESTING COMFORTABLY. NO NEEDS AT THIS TIME. DENIES NAUSEA/PAIN.
--- NOTE | 2020-09-14 12:15 | NUR ---
RIGHT GROIN DRESSING C/D/I. NO S/S OF HEMATOMA NOTED. HEAD OF BED INC TO 30 DEGREES. TOLERATED WELL. SET UP WITH DRINK. DENIES NAUSEA. DOES NOT WANT FOOD AT THIS TIME.
--- NOTE | 2020-09-14 13:00 | NUR ---
RIGHT GROIN DRESSING C/D/I. NO S/S OF HEMATOMA NOTED. PIV D/C'D WITH CATH TIP INTACT. TOLERATED WELL. DISCUSSED DISCHARGE INSTRUCTIONS WITH PT. SHE VOICED UNDERSTANDING. PT INSTRUCTED TO GET UP AND DRESSED AT THIS TIME. CALL LIGHT WITHIN REACH. NO ASSISTANCE NEEDED.
--- NOTE | 2020-09-14 13:10 | NUR ---
PT AMBULATED TO RESTROOM. VOIDED WITHOUT DIFFICULTYY. STEADY GAIT NOTED. RIGHT GROIN DRESSING C/D/I. NO S/S OF HEMATOMA NOTED. PT TAKEN OUT TO VEHICLE BY WHEELCHAIR. NO S/S OF DISTRESS NOTED. ALL BELONGINGS AND PAPERWORK IN HAND.
--- NOTE | 2020-09-15 08:48 | HP ---
PATIENT: JULIO CESAR CASANOVA MEDICAL RECORD: [id number] ACCOUNT: [id number] LOCATION:[facility] : 61 ADMISSION DATE: 09/14/20 PCP: CARMEN HERNANDEZ MD HISTORY AND PHYSICAL EXAMINATION HISTORY OF PRESENT ILLNESS: A 55-year-old female with a history of coronary artery disease, most recently status post intervention to the LAD, is being brought for intervention of the right in a staged fashion. PAST MEDICAL HISTORY: Includes: 1. History of coronary artery disease as described above. 2. Hypertension. 3. Hyperlipidemia. 4. Diabetes mellitus. ALLERGIES: None known. MEDICATIONS: Include metformin 1 gram b.i.d., Victoza 1.8 daily, Plavix 75 every day, aspirin 81 every day, simvastatin 40 every day, Ranexa 1 gram b.i.d., losartan 50 every day, carvedilol 3.125 every day. PHYSICAL EXAMINATION: GENERAL: Pleasant. No acute distress, appears stated age. HEENT: Normocephalic and atraumatic. NECK: No JVD or bruit. HEART: Regular. LUNGS: Oro clear. ABDOMEN: Soft and nontender. EXTREMITIES: Pulses 2+. No edema. PLAN: Intervention of the right today. TRANSINT:[id number] Voice Confirmation ID: [id number] DOCUMENT ID: [id number] MANOLO CAMACHO MD at 0848 CC: [id number] DICTATION DATE: 09/14/20 0842 TICKET WORKER: 09/14/20 1044 [facility] 09/14/20 [place] [address]
--- NOTE | 2020-09-15 08:48 | OP ---
PATIENT NAME: JULIO CESAR CASANOVA MEDICAL RECORD: [id number] :61 LOCATION:[facility] ADMISSION DATE: SURGEON: MANOLO CAMACHO MD DATE OF OPERATION: 09/14/2020 PROCEDURE: PTCA stent. DESCRIPTION OF PROCEDURE: After right femoral artery was cannulated via modified Seldinger technique, we used a hockey stick guiding catheter with sideholes. We then addressed the 90% PDA and 80% mid right predeployment with a 3.0 x 15 mm [place] balloon up to 10 atmospheres. Next, a PDA stent deployed was a 3.0 x 12 Manjeet drug-eluting stent in the mid, right was addressed with a 3.0 x 12 up to 14 atmospheres. IFR wire after this was 0.76. Therefore, a second 3.0 balloon was taken distally to the first PDA stent and the second to the RCA stent up to 16 atmospheres. This shows improvement in the IFR wire to 0.85 with excellent angiography. We then closed with ExoSeal device. Cardiac rehab was recommended. The patient was previously on Plavix. TRANSINT:[id number] Voice Confirmation ID: [id number] DOCUMENT ID: [id number] MANOLO CAMACHO MD at 0848 CC: [id number] DICTATION DATE: 09/14/20929 PROJECT HIRE: 09/14/20 1443 [facility] 09/14/20 [address] [place] [address]
== END 2020-09-14 13:10 | disposition home or self-care (01) ==
LOC: D.CATH 06:56
PROVIDERS: ATTEND Internal Medicine Interventional Cardiology
DX: R07.9 Chest pain, unspecified (principal); I25.110 Atherosclerotic heart disease of native coronary artery with unstable angina pectoris; I10 Essential (primary) hypertension; E11.9 Type 2 diabetes mellitus without complications; E78.5 Hyperlipidemia, unspecified